=== PATIENT | female | born 1980 | race Caucasian/White ===

== ENCOUNTER 2022-06-27 21:42 | Emergency (ER) | payer BC, SELFPAY ==
[2022-06-27 21:50] VITALS: BP 134/86; PULSE 77; RESP 18; TEMP 36.3; O2SAT 99; BMI 32.5
--- NOTE | 2022-06-27 21:58 | ED.EAR ---
HPI - Ear Problem General Time Seen by Provider: 21:58 Date Seen: 06/27/22 Chief complaint: Ear/Nose/Throat Problem Stated complaint: EAR INFECTION Time Seen by Provider: 06/27/22 21:43 Source: patient and RN notes reviewed Mode of arrival: ambulatory Limitations: no limitations History of Present Illness HPI Narrative: Patient is coming in with concern of an ear infection. She had a little bit more ear pain, notes bilateral but maybe left is worse right now. She has noticed sensation of having to keep open her mouth like she is going upper down in a plane on the left side. She has had some crackling and popping on the right side. Denies any significant nasal congestion, no fevers or chills that she knows of. Maybe felt a little warm earlier today. Has not had any underlying cough or cold symptoms. Did try a some Sudafed 3 or 4 times today has not really helped. Triad some Afrin today and seemed to clear symptoms up will briefly but then came back. She does have a pool but has not noticed any drainage coming from her ears. Her left ear has felt a little itchy at times. She does have a history of ear infections and is wondering if this could be starting. She has felt a little off balance/dizzy with these symptoms. Related Data Home Medications Medication Instructions Recorded Confirmed omeprazole 20 mg capsule,delayed 20 mg PO DAILY 06/27/22 06/27/22 release Allergies Allergy/AdvReac Type Severity Reaction Status Date / Time No Known Drug Allergies Allergy Verified 06/27/22 21:55 Review of Systems Status of ROS: Reports: 6 or more systems reviewed and unremarkable except as noted in History and below [facility] Medical History (Updated 06/27/22 @ 22:15 by Tara Orr MD) GERD (gastroesophageal reflux disease) Social History Smoking Status: Never smoker How many standard drinks containing alcohol do you have on a typical day: 1 or 2 AUDIT-C Alcohol total score: 0 Non-prescribed substance use: denies use Exam Const: Vital Signs, click to edit/add: Vital Signs - 24 hr 06/27/22 21:50 Temperature 97.4 F L Pulse Rate [Pulse Oximeter] 77 Respiratory Rate 18 Blood Pressure [Ri ght Upper Arm] 134/86 Pulse Oximetry 99 Oxygen Delivery Me thod Room Air Documenting provider has reviewed patient's vital signs: yes Common normals: no apparent distress, oriented x3, no limitations, healthy appearing and alert General appearance: cooperative, comfortable and well kempt HENMT: Common normals: normocephalic, head/scalp atraumatic, hearing grossly normal bilaterally, external ears normal, EAC's normal, external nose normal, nasal mucous membranes and turbinates normal, moist oral mucous membranes and oropharynx normal Head and scalp: normocephalic and atraumatic Nose: external nose normal and nasal mucous membranes and turbinates normal External ear: external ears normal External auditory canal: EAC's normal Other: Left TM and canal without any visible abnormality. This tympanic membrane is translucent without any changes. Right tympanic membrane is dull, loss of translucency but no color change. Eye: Common normals: PERRL, EOMs intact bilaterally, conjunctivae normal and no scleral icterus Conjunctiva: conjunctiva(e) normal Pupil: PERRL Neck & C-Spine: Common normals: full ROM, no lymphadenopathy, supple, no meningeal signs, no JVD and thyroid normal Thyroid: thyroid normal Cardio: Common normals: no JVD Neuro: Common normals: oriented x3 Sensorium/orientation: alert Meningeal signs: no meningeal signs Psych: Appearance: well kempt Course Course Hospital Course: Reviewed with patient that this sounds like eustachian tube dysfunction. She does have some evidence of some fluid on her right side. Reviewed with her that there is no evidence of infection. I did agree to send a prescription for an antibiotic to start should her ear pain worsens or she gets fevers with this ear pain. She states she tends to transform quickly in the ear infections. I have written for amoxicillin international broadcast music librarian 75 mg twice a day for 7 days. I have also sent a prescription to see if her insurance will cover for Misa-D 12 hour b.i.d. and Flonase 2 sprays each nostril daily. Vital Signs Vital signs: Initial Vital Signs Temperature 97.4 F L 06/27/22 21:50 Temperature Source Temporal Artery Scan 06/27/22 21:50 Pulse Rate 77 06/27/22 21:50 Respiratory Rate 18 06/27/22 21:50 Blood Pressure 134/86 06/27/22 21:50 Blood Pressure Mean 102 06/27/22 21:50 Blood Pressure Position Sitting 06/27/22 21:50 Pulse Oximetry 99 06/27/22 21:50 Oxygen Delivery Method 06/27/22 21:50 Vital Signs Temperature 97.4 F L 06/27/22 21:50 Pulse Rate 77 06/27/22 21:50 Respiratory Rate 18 06/27/22 21:50 Blood Pressure 134/86 06/27/22 21:50 Pulse Oximetry 99 06/27/22 21:50 Oxygen Delivery Method 06/27/22 21:50 Temperature 97.4 F L 06/27/22 21:50 Pulse Rate 77 06/27/22 21:50 Respiratory Rate 18 06/27/22 21:50 Blood Pressure 134/86 06/27/22 21:50 Pulse Oximetry 99 06/27/22 21:50 Oxygen Delivery Method 06/27/22 21:50 Critical Care Time Critical Care Time Critical Care Time: No Discharge Plan Discharge Clinical Impression: Acute dysfunction of both eustachian tubes, Acute serous otitis media of right ear Condition: Stable Instructions: Serous Otitis Media (ED) Additional Instructions: Start Misa D 12 hour 1 pill twice a day and Flonase 2 sprays each nostril daily. You may need to take these medicines for days up to a couple weeks for symptoms really to improve. Should you start to notice increasing ear pain or develop fever with ear pain, can start the prescription for the amoxicillin I sent with. If there is any concern at any point about each ear symptoms changing, not improving, please seek re-evaluation. Activity Level: Activity as Tolerated Prescriptions: No Action omeprazole 20 mg capsule,delayed release(DR/EC) 20 mg PO DAILY Stand Alone Forms: [email or web address] Info Instructions
--- OUTSIDE RECORDS SUMMARY | 2022-07-05 21:34 | XMS_ITS | Clinical Summary ---
:1980 Author Organization [facility] Address [address] [place] [id number] Care Team Providers Name Role Phone Unavailable Primary Care Provider Unavailable Source Comments Patient records contain information from all sites at [facility]. For routine questions regarding patient records, call [phone] during business hours, M-F 8:00 AM - 5:00 PM Central Time. Record requests for emergency care only can be directed to [phone] at any time.[facility] Allergies Active Allergy Reactions Severity Noted Date Comments Sulfa (Sulfonamide Antibiotics) GI intolerance 022 Medications Medication Sig Dispensed Refills Start Date End Date Status brimonidine Apply 1 application 0 11/21/2020 Active (Mirvaso) 0.33 % gel topically every morning. omeprazole Take 20 mg by mouth 0 Active (PriLOSEC) [address] every morning capsule before breakfast. omeprazole Take 1 capsule (20 90 capsule 3 11/15/2021 Active (PriLOSEC) [address] mg total) by mouth capsule every morning before breakfast. Active Problems No known active problems Family History Medical History Relation Name Comments Alcohol abuse Brother 1 Guevara Fuentes Age 18-37 Drug abuse Brother 1 Guevara Fuentes Age 24-37 Alcohol abuse Brother 2 Gene Fuentes Age 18-28 Drug abuse Brother 2 Gene Fuentes Age 18-28 Coronary artery disease Father Deshaun Fuentes PCI with stent Diabetes Father Deshaun Fuentes Type 2 Skin cancer Father Deshaun Fuentes Age 65 Coronary artery disease Mother Tracy Fuentes Age 49 ( from it) Drug abuse Mother Tracy Fuentes Fentanyl, Age 40 + Yudelka thyroiditis Mother Tracy Fuentes Lupus Mother Tracy Fuentes Obesity Mother Tracy Fuentes Age 30+ Psychiatric Mother Tracy Fuentes Lifelong Coronary artery disease Paternal Grandfather Yousif Fuentes Skin cancer Paternal Grandfather Yousif Fuentes Relation Name Status Comments Brother 1 Guevara Fuentes Brother 2 Gene Fuentes Father Deshaun Fuentes Mother Trcay Fuentes Paternal Grandfather Yousif Fuentes Social History Tobacco Use Types Packs/Day Years Used Date Smoking Tobacco: Never Smokeless Tobacco: Never Alcohol Use Standard Drinks/Week Comments Yes 10 (1 standard drink = 0.6 oz pure 1-2 g lasses of wine most nights alcohol) Alcohol Habits Answer Date Recorded How often do you have a drink 4 or more times a week 022 containing alcohol? How many drinks containing alcohol do 1 or 2 you have on a typical day when you are drinking? How often do you have six or more Less than monthly 2021 drinks on one occasion? Comment: 1-2 glasses of wine most nights 11/13/19 22 Social Isolation Answer Date Recorded In a typical week, how many times do you Once a week 11/09/2021 talk on the phone with family, friends, or neighbors? How often do you get together with friends Twice a week 11/09/2021 or relatives? How often do you attend moravian or mandaeism 1 to 4 times per year 11/09/2021 services? Do you belong to any clubs or organizations Yes 11/09/2021 such as moravian groups, unions, fraternal or athletic groups, or school groups? How often do you attend meetings of the More than 4 times pe r year 11/09/2021 clubs or organizations you belong to? Are you now , , , 11/09/2021 , never or living with a partner? Physical Activity Answer Date Recorded On average, how many days per week do you engage in moderate to 2 days 11/09/2021 strenuous exercise (like walking fast, running, jogging, dancing, swimming, biking, or other activities that cause a light or heavy sweat)? On average, how many minutes do you engage in exercise at th is 30 min 11/09/2021 level? Stress Answer Date Recorded Do you feel stress - tense, restless, nervous, or Only a lit tle 11/09/2021 anxious, or unable to sleep at night because your mind is troubled all the time - these days? Financial Resource Strain Answer Date Recorded How hard is it for you to pay for the very basics like Not h marilee at all 11/09/2021 food, housing, medical care, and heating? Intimate Partner Violence Answer Date Recorded Within the last year, have you been afraid of your partner o r No 11/09/2021 ex-partner? Within the last year, have you been humiliated or emotionall y No 11/09/2021 abused in other ways by your partner or ex-partner? Within the last year, have you been kicked, hit, slapped, or No 11/09/2021 otherwise physically hurt by your partner or ex-partner? Within the last year, have you been raped or forced to have any No 11/09/2021 kind of sexual activity by your partner or ex-partner? Food Insecurity Answer Date Recorded Within the past 12 months, you worried that your food would Never true 11/09/2021 run out before you got money to buy more. Within the past 12 months, the food you bought just didn't N ever true 11/09/2021 last and you didn't have money to get more. Transportation Needs Answer Date Recorded In the past 12 months, has lack of transportation kept you f rom No 11/09/2021 medical appointments or from getting medications? In the past 12 months, has lack of transportation kept you f rom No 11/09/2021 meetings, work, or getting things needed for daily living? Housing Stability Answer Date Recorded In the last 12 months, was there a time when you were not ab le No 11/09/2021 to pay the mortgage or rent on time? In the last 12 months, how many places have you lived? 1 11/09/2021 In the last 12 months, was there a time when you did not hav e a No 11/09/[address] or slept in a group home (including now)? Education Answer Date Recorded What is the highest level of school Bachelor's degree (e.g., BA, AB, 11/09/2021 you have completed or the highest BS) degree you have received? 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 Last Filed Vital Signs Vital Sign Reading Time Taken Comments Blood Pressure 115/76 11/13/2021 1:53 PM COMPOUNDING PHARMACY TECHNICIAN Pulse 83 11/13/2021 1:53 PM COMPOUNDING PHARMACY TECHNICIAN Temperature 36.6 ??C (97.9 ??F) 11/13/2021 1:53 PM COMPOUNDING PHARMACY TECHNICIAN Respiratory Rate - - Oxygen Saturation - - Inhaled Oxygen Concentration - - Weight 107 kg (236 lb 14.2 oz) 11/13/2021 1:53 PM COMPOUNDING PHARMACY TECHNICIAN Height 171 cm (5' 7.32) 11/13/2021 1:53 PM COMPOUNDING PHARMACY TECHNICIAN Body Mass Index 36.75 11/13/2021 1:53 PM COMPOUNDING PHARMACY TECHNICIAN Plan of Treatment Health Maintenance Due Date Last Done Comments HIV Screening 1980 Hepatitis B Vaccines (1 of 3 1980 - 3-dose series) Hepatitis C Screening 1980 COVID-19 Vaccine (4 - Booster 10/11/2021 08/16/2021, for Moderna series) 01/03/2021, 12/06/2020 Influenza Vaccine (#1) 2022 Mammogram 11/14/2022 11/14/2021 DTaP,Tdap,and Td Vaccines (2 09/28/2025 09/28/2015 - Td or Tdap) Lipid (Cholesterol) Screening 11/13/2026 11/13/2021 Cervical Cancer Screening 11/14/2026 11/14/2021, 11/14/2021 Depression Screening (Annual Completed 11/09/2021 PHQ-2) Pneumococcal vaccine (0-64 Aged Out No lo nger eligible based years) on patient's age to complete this to [facility] Insurance Payer Benefit Plan / Subscriber ID Effective Dates Phone Addre ss Type Group BLUE CROSS ANTHEM BLUE [id number] 2020-Presen [phone] [address] X [id number] POS BLUE SHIELD PREFERRED POS t [address] [place] [address]
--- OUTSIDE RECORDS SUMMARY | 2022-07-05 21:35 | XMS_ITS | Encounter Summary ---
:1980 Author Organization [facility] Address [address] [place] [address] Care Team Providers Name Role Phone Unavailable Primary Care Provider Unavailable Reason for Referral Outpatient (Routine) - Closed Specialty Diagnoses / Procedures Referred By Contact Refer red To Contact Diagnoses Cardiac Vascular Disease Screening Leonora Lucero M.D. [facility] Procedures Exercise Treadmill - Order for 40 years and greater [address] [place] [address] Referral ID Status Reason Start Date Expiration Date Visits Requ ested Visits Authorized [id number] Closed 09/10/2021 09/10/2022 1 1 INSPECTOR Reason for Visit Outpatient (Routine) - Closed Specialty Diagnoses / Procedures Referred By Contact Refer red To Contact Diagnoses Cardiac Vascular Disease Screening Leonora Lucero M.D. [facility] Procedures Exercise Treadmill - Order for 40 years and greater [address] [place] [phone] Referral ID Status Reason Start Date Expiration Date Visits Requ ested Visits Authorized [id number] Closed 09/10/2021 09/10/2022 1 1 Encounter Details Date Type Department Care Team Description 11/14/2021 Hospital Encounter Department of Leonora Lucero Cardiac Vascular Cardiovascular Diseases [facility] Screening in [facility] [address] [facility] [address] [place] [id number] [phone] Social History Tobacco Use Types Packs/Day Years [...] or relatives? How often do you attend uatsdin or scientology 1 to 4 times per year 11/09/2021 services? Do you belong to any clubs or organizations Yes 11/09/2021 such as uatsdin groups, unions, fraternal or athletic groups, or [...] place to sleep or slept in a usp (including now)? Education Answer Date Recorded What is the highest level of school Bachelor's degree (e.g., BA, AB, 11/09/2021 you have completed or the highest BS) degree you have received? 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 omeprazole (PriLOSEC) 20 Take 20 mg by mouth [address] capsule every morning before breakfast. documented as of this encounter Plan of Treatment Not on filedocumented as of this encounter Procedures Procedure Name Priority Date/Time Associated Diagnosis Comme nts EXERCISE ECG Routine 11/14/2021 2:03 PM Cardiac Vascular Resul ts for this TUBE INSPECTOR Disease Screening procedure are in the results section . documented in this encounter Results EXERCISE ECG (11/14/2021 2:03 PM TUBE INSPECTOR) Specimen (Source) Anatomical Collection Method Collection Time Re ceived Time Location / / Volume Laterality 11/14/2021 1:17 PM TUBE INSPECTOR Narrative [facility] MERGE - 11/14/2021 3:10 PM TUBE INSPECTOR This result has an attachment that is no t available. See PDF For Result Procedure Note Carlos Swenson M.D. - 11/14/2021Forma tting of this note might be different from the original. See PDF For Result Leonora Lucero M.D. CV STRESS PROCEDURES Performing Organization Address City/State/ZIP Code Phon e Number [facility] MERGE [facility] NA documented in this encounter Visit Diagnoses Diagnosis Cardiac Vascular Disease Screening documented in this encounter
--- OUTSIDE RECORDS SUMMARY | 2022-07-05 21:35 | XMS_ITS | Encounter Summary ---
:[address] [facility] Address [address] [place] [address] Care Team Providers Name Role Phone Unavailable Primary Care Provider Unavailable Reason for Referral Outpatient (Routine) - Closed Specialty Diagnoses / Procedures Referred By Contact Refer red To Contact Diagnoses Screening Mammogram Breast Cancer Leonora Lucero M.D. [facility] Procedures BI Breast Screening Bilateral with Tomosynthesis [address] [place] [address] Referral ID Status Reason Start Date Expiration Date Visits Requ ested Visits Authorized [id number] Closed 11/13/2021 11/13/2022 1 1 SITE SPECIALIST Reason for Visit Outpatient (Routine) - Closed Specialty Diagnoses / Procedures Referred By Contact Refer red To Contact Diagnoses Screening Mammogram Breast Cancer Leonora Lucero M.D. [facility] Procedures BI Breast Screening Bilateral with Tomosynthesis [address] [place] [address] Referral ID Status Reason Start Date Expiration Date Visits Requ ested Visits Authorized [id number] Closed 11/13/2021 11/13/2022 1 1 Encounter Details Date Type Department Care Team Description 11/14/2021 Hospital Encounter Department of Leonora Lucero Scree ning Mammogram Radiology in [facility] [place], [place] [address] [facility] [address] [place] [phone] Social History Tobacco Use Types Packs/Day Years [...] or relatives? How often do you attend sabianism or jewish 1 to 4 times per year 11/09/2021 services? Do you belong to any clubs or organizations Yes 11/09/2021 such as sabianism groups, unions, fraternal or athletic groups, or [...] place to sleep or slept in a skilled nursing (including now)? Education Answer Date Recorded What is the highest level of school Bachelor's degree (e.g., BA, AB, 11/09/2021 you have completed or the highest BS) degree you have received? 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 documented in this encounter Results BI Breast Screening Bilateral with Tomosynthesis (11/14/2021 2:35 PM WEB SITE SPECIALIST) Anatomical Region Laterality Modality Breast, Breast Imaging RST LOS, Breast Imaging ARZ LOS, [place] [address] Bilateral Mammography Imaging FLA LOS Specimen (Source) Anatomical Collection Method Collection Time Re ceived Time Location / / Volume Laterality 11/15/2021 7:57 AM WEB SITE SPECIALIST Impressions 11/15/2021 9:22 AM WEB SITE SPECIALIST Negative. RECOMMENDATION: ??Annual Screening Mammo gram ASSESSMENT: ??BI-RADS: 1: Negative. Narrative 11/15/2021 9:22 AM WEB SITE SPECIALIST EXAM: ??BI BREAST SCREENING BILATERAL WITH TOMOSYNTHESIS Current study was evaluated with a [employer] Interactive Aided Detection (CAD) system. INDICATION: ??Screening mammogram. COMPARISON: ??None, this is a baseline s creening exam. DENSITY: ??c. The breast(s) are heteroge neously dense, which may obscure small masses. FINDINGS: ??No mammographic findings of malignancy. Procedure Note Melvi Cordova M.D. - 11/15/2021Formatti ng of this note might be different from the original. EXAM: BI BREAST SCREENING BILATERAL WITH TOMOSYNTHESIS Current study was evaluated with a [employer] Interactive Aided Detection (CAD) system. INDICATION: Screening mammogram. COMPARISON: None, this is a baseline scr eening exam. DENSITY: c. The breast(s) are heterogene ously dense, which may obscure small masses. FINDINGS: No mammographic findings of ma lignancy. IMPRESSION: Negative. RECOMMENDATION: Annual Screening Mammogr am ASSESSMENT: BI-RADS: 1: Negative. Leonora BRICENO BI PROCEDURES documented in this encounter Visit Diagnoses Diagnosis Screening Mammogram Breast Cancer documented in this encounter
--- OUTSIDE RECORDS SUMMARY | 2022-07-05 21:35 | XMS_ITS | Encounter Summary ---
:1980 Author Organization [facility] Address [address] [place] [id number] Care Team Providers Name Role Phone Unavailable Primary Care Provider Unavailable Reason for Referral Physical Therapy (Routine) - Authorized Specialty Diagnoses / Procedures Referred By Contact Refer red To Contact Diagnoses Pain Low Back Unspecified Shara Campos M.D. [address] [place] [phone] Referral ID Status Reason Start Date Expiration Date Visits V isits Requested Authorized [id number] Authorized Other 11/15/2021 11/15/2022 1 1 OUR GRINDER Reason for Visit Reason Comments Back Pain Outpatient (Routine) - Closed Specialty Diagnoses / Procedures Referred By Contact Refer red To Contact Physical Medicine and Diagnoses Pain Low Back Un[facility] [address] [place] [phone] Referral ID Status Reason Start Date Expiration Date Visits Requ ested Visits Authorized [id number] Closed 11/13/2021 11/13/2022 1 1 Encounter Details Date Type Department Care Team Description 11/15/2021 Comprehensive Visit Department of Physical Beth, Pain Low Back Medicine and Shara Clemente M.D. Unspecified Rehabilitation in [address] [place] [address] [place] [phone] [place], [place] [phone] (Work) [phone] Social History Tobacco Use Types Packs/Day Years [...] 1-2 glasses of wine most nights 11/13/19 Social Isolation Answer Date Recorded In a typical week, how many times do you Once a week 11/09/2021 talk on the phone with family, friends, or neighbors? How often do you get together with friends Twice a week 11/09/2021 or relatives? How often do you attend restoration or yarsani 1 to 4 times per year 11/09/2021 services? Do you belong to any clubs or organizations Yes 11/09/2021 such as restoration groups, unions, fraternal or athletic groups, or [...] place to sleep or slept in a half-way (including now)? Education Answer Date Recorded What is the highest level of school Bachelor's degree (e.g., BA, AB, 11/09/2021 you have completed or the highest BS) degree you have received? 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 - 11/15/2021 10:00 AM CST SUBJECTIVE REASON FOR CONSULT Low back and hip pain. HISTORY OF PRESENT ILLNESS Mrs. Rojas is a 41-year-old woman who has had back pain for about 5 years. She does state that she did a lot of sitting in her 20s, and perhaps that is what initially started this. She has tried a lotof treatments on her own. She has a TENS unit that she uses occasionally. She goes to a masseuse once a month. This usually helps, although 1 in 5 times it will make the pain worse. She has tried chiropractic treatment, but it only gives her a very short period of relief. She has been to a physical therapist as well as a sports therapist at the chiropractor's office. She does some stretching. She does a few postural exercises. She uses heat which does help. Her pain is mainly located across the lumbosacral region. When she gets the pain, it will also travel into her hips. She describes tightness and stiffness and crunchiness in the lumbosacral region and traveling into the hips. The pain can get up to a 7/10. The 7/10 pain will occur twice a year. Normally, it is more like a 3 to 4 out of 10. The pain is aggravated by prolonged sitting, and particularlywhen she goes from sit to stand. She now has a standing desk which really helps her a lot. She has also gotten a better mattress which she feels helps. The pain is aggravated by extension. Lifting something will bother her when she comes up from lifting. The pain is better with moving around, walking. Standing is better than sitting. She takes an occasional Advil, which will help. Although she is does not do any formal exercise, she is very active. She walks 25 minutes to and from work. She stands about 10 hours a day. The following portions of the patient's history were reviewed and updated as appropriate: allergies,current medication, family history, medical history, surgical history, social history, problem list. She is here for an Executive physical. She is being evaluated for a rheumatologic condition. She does have a BMI of 36, and is working on losing weight. She has lost about 10 pounds, and is following the Mediterranean diet She does have some midback pain as well. This occurs when she is standing, flexed forward with an increased thoracic kyphosis. OBJECTIVE PHYSICAL EXAMINATION General: Well-developed, well-nourished individual in no acute distress. Mental: Oriented to person, place, and time. Appropriate mood and affect. Appears to have normal memory. Gait: Gait reveals normal leela and stride. Toe and heel walking are normal. Musculoskeletal : Inspection and Palpation: She has a mild thoracic scoliosis convex to the right. She has tenderness to palpation in the paraspinal lumbosacral region from about L4-S1. She has mild tenderness over the SI joints. She is tender in the trochanteric bursal region. Range of Motion: Range of motion of the lumbar spine is slightly diminished in all directions. Thereis pain with extension. Hip range of motion is good without any pain. Jossy's goes from 15-21 cm. SI provocative maneuvers demonstrate pain with sacral glide and thigh thrust. Strength and Reflexes: Strength and reflexes in the lower extremities are normal. Balance: She has good balance with single leg stance. With single leg squat she does have some difficulty going into a squat and has decreased activation of her glutes and pelvic and hip abductors. DIAGNOSTICS I have reviewed her x-rays of the lumbar spine and her SI joints. 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 ASSESSMENT / PLAN #1 Low back pain, mechanical and myofascial I do think that the facet joints and the SI joint are contributing, but there is also a significant myofascial component to this. #2 Hip pain, myofascial I have reassured the patient that I find no evidence of degenerative arthritis of her hips. I do think that this is all myofascial and includes the gluteus medius and minimus and the psoas muscle. PLAN: 1. I do think she would benefit from a comprehensive stretching and strengthening program that she does regularly. I will give her an order for physical therapy to do at home with the goal of getting on a home program. She does have exercise equipment at home including a strengthening machine that we c nataliya utilize. 2. Discussed the importance of posture. Her standing desk is excellent. She should make sure she maintains good sitting posture, and we will have the therapist review this. She could try a wedge cushion when she is sitting to see if that helps. 3. She is trying to lose weight and that should help, but I think that the other measures above are also very important. 4. We discussed Voltaren gel as an option to relieve pain temporarily. She could rub it on the painful area up to 2 times per day. 5. Could consider injections in the future if needed, but certainly does not need it right now. Total time is 60 minutes including review of records and coordination of care. Shara Campos M.D. CT CT Job ID: [id number] OUR GRINDER documented in this encounter Plan of Treatment Not on filedocumented as of this encounter Visit Diagnoses Diagnosis Pain Low Back Unspecified documented in this encounter
--- OUTSIDE RECORDS SUMMARY | 2022-07-05 21:35 | XMS_ITS | Encounter Summary ---
:1980 Author Organization [facility] Address [address] [place] [address] Care Team Providers Name Role Phone Unavailable Primary Care Provider Unavailable Reason for Visit Outpatient (Routine) - Closed Specialty Diagnoses / Referred By Contact Referred To Contact Procedures Cardiovascular Diseases / Diagnoses [facility] [address] [place] [phone] Referral ID Status Reason Start Date Expiration Date Visits Requ ested Visits Authorized [id number] Closed 09/10/2021 09/10/2022 1 1 Encounter Details Date Type Department Care Team Description 11/15/2021 Comprehensive Visit Department of Ariadne Jackson Cardiac Vascular Disease Screening (Primary Dx); Cardiovascular E, P.A.-C., Family Histor y Coronary Artery Disease; Medicine in [place]. Hypertriglyceridemia; [place], [place] [address] Deconditioned; [address] [facility] Palpitations; [place], [place] Chu [phone] [place] [phone] Social History Tobacco Use Types Packs/Day Years [...] or relatives? How often do you attend jewish or temple 1 to 4 times per year 11/09/2021 services? Do you belong to any clubs or organizations Yes 11/09/2021 such as jewish groups, unions, fraternal or athletic groups, or [...] place to sleep or slept in a intermediate (including now)? Education Answer Date Recorded What is the highest level of school Bachelor's degree (e.g., BA, AB, 11/09/2021 you have completed or the highest BS) degree you have received? 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 - 11/15/2021 8:30 AM CST SUBJECTIVE CHIEF COMPLAINT/REASON FOR VISIT Cardiovascular Health Assessment HISTORY OF PRESENT ILLNESS Ifeoma Rojas is a very pleasant 41 y.o. female who is being seen today for initial consultation. Personal history of ASCVD: no Current cardiovascular medications: None Denies symptoms of chest pain, tightness, dyspnea. She does experience a racing heartrate after heatexposure; she has heat intolerance, with which she will develops headache, blotchy skin, nausea, increased Heart rate/palpitations. She notes that this is helped by placing her hands in cold water/ice.She also becomes lightheaded with prolonged standing and with heat exposure, she occasionally will experience presyncope, once again alleviated by cold water/ice. 8-10 years ago, she did experience syncope in the setting, however since she has implemented lifestyle approaches, has avoided syncope since that time. She does endorse mild peripheral edema, this has been present for quite some time, it is never more than just a slight indentation from her socks. She does stand all day at a standing desk. She notes that compression stockings help. Family history is pertinent for mother had a fatal IL at age 49, father had an IL with stent placed at age 47. Paternal grandfather had an IL at age 39. His father paternal grandfather were both tobacco users, her mother did not use tobacco, did not have diagnosed diabetes, although she was morbidly obese, greater than 400 lb. We discussed lifestyle habits, specifically diet and exercise. She notes her diet to be overall relatively healthy, although room for improvement. She has 3-4 servings of fruits and vegetables per day, her carbohydrate intake is usually white varieties, she does not have any sodas or sweetened beverages, she does not eat very many sweets/treats. Fried food is perhaps once per week, using at prior. She has red meat 4 times per week, 3-4 oz serving sizes. Cooking oils are either olive oil or butter, new coconut oil. Alcohol intake is 1-2 beverages, most days of the week, average 10 per week. Her exercise habits include walking to in from work, [address] She has previously worked with a process trainer for resistance exercise, although notes that she does not enjoy resistance exercise. Risk Factors for CAD: Tobacco Use: reports that she has never smoked. She has never used smokeless tobacco. High Blood Pressure: no Diabetes: No FH of early onset CAD in immediate family members (male <55, female <65): yes Hyperlipidemia: yes Inactivity: yes Obesity: yes Patient responses from the Cardiology Preventive Questionnaire: -Typical level of stress during the past month: 8 -Daily servings of fruit: 1 serving per day -Daily servings of vegetables: 3 servings per day -Daily servings of saturated fats: 1 serving per day -Light Exercise (min/wk): 280 min/wk -Moderate exercise (min/wk): 60 -Intense Exercise (min/wk): -Days doing vigorous physical activities: No days per week -Total time spent doing vigorous physical activities: -Total minutes doing strength/weight training exercises: I do not strength train -Days doing stretching/flexibility exercise: No days per week REVIEW OF SYSTEMS Constitutional: Positive for fatigue. Gastrointestinal: Positive for heartburn. Musculoskeletal: Positive for back pain. The following systems were negative: Skin, Eyes, ENT, CV, Respiratory, , Hematologic, Neuro, Psych OBJECTIVE BMI 36.75 BP 115/76 at initial office visit BP 126/74 at beginning of exercise stress test PHYSICAL EXAMINATION Constitutional Appearance: Normal appearance. HENT Head: Normocephalic and atraumatic. Neck Vascular: No carotid bruit. Cardiovascular Rate and Rhythm: Normal rate and regular rhythm. Pulses: Normal pulses. Heart sounds: Normal heart sounds. No murmur. No friction rub. No gallop. Pulmonary Effort: Pulmonary effort is normal. Breath sounds: Normal breath sounds. Musculoskeletal Right lower leg: Right lower leg edema: mild. Left lower leg: Left lower leg edema: mild. Neurological Mental Status: She is alert and oriented to person, place, and time. Skin General: Skin is warm and dry. Psychiatric Mood and Affect: Mood normal. Behavior: Behavior normal. Thought Content: Thought content normal. DIAGNOSTICS Chemistry: Lab Results Component Value Date/Time NA 138 11/13/2021 09:38 AM KSERUM 4.4 11/13/2021 09:38 AM CREATININE 0.92 11/13/2021 09:38 AM EGFRNONBLKAA 78 11/13/2021 09:38 AM GLUCOSE 94 11/13/2021 09:39 AM ALKPHOS 70 11/13/2021 09:38 AM ALT 20 11/13/2021 09:38 AM CALCIUM 9.2 11/13/2021 09:38 AM Lipids: Lab Results Component Value Date/Time CHOL 191 11/13/2021 09:38 AM TRIG 165 (H) 11/13/2021 09:38 AM HDL 56 11/13/2021 09:38 AM LDLCALC 102 11/13/2021 09:38 AM ECG 12 Lead Result Date: 11/13/2021 Normal sinus rhythm Normal ECG No previous ECGs available Reviewed by AAKASH Betts Chest Xray: Normal cardiac silhouette Exercise Stress test: Negative for ischemia however limited exercise capacity, 67.4% functional aerobic capacity, normal heart rate and blood pressure response with exercise and recovery, PVCs >5/min ASSESSMENT / PLAN #1 Cardiac Vascular Disease Screening #2 Family History Coronary Artery Disease #3 Hypertriglyceridemia #4 Deconditioned #5 Palpitations #6 Lightheadedness She has a 10 year ASCVD risk of 0.4 % with an optimal risk of 0.4 %; low risk. According to AHA/ACC guidelines with an LDL less than 190 mg/dL and a 10 year risk less than 20%, statin therapy is not indicated. Regarding risk factor specific to women, she did not have premature menopause, did not have conditions of including preeclampsia, eclampsia, gestational diabetes. However, she does have history of PCOS, which approximately doubles baseline ASCVD risk. Her triglycerides are mildly elevated, recommend optimization of lifestyle, including reduction of simple carbohydrates, sugars, alcohol. She should also focus on trying to increase her aerobic exercise. Due to strong family history of early-onset ASCVD, and have added a lipoprotein(a) to her previouslydrawn blood work. We discussed that there are not clear guidelines regarding management of individuals at overall low risk with elevated lipoprotein(a), however this will give us more information regard ing her overall risk profile. If it is significantly elevated, with the significantly early-onset offor family history of ASCVD, I do feel it would be reasonable to initiate a moderate intensity statin. If it is within normal limits, this provide some reassurance that she does not have this particular risk factor, although we discussed that there are still other genetic propensities for ASCVD that we have not yet elucidated. Therefore, even if it is within normal limits, she should remain diligent about her risk factor management. Regarding her lightheadedness, and palpitations, this sounds mostly aligned with her heat intolerance, and potential autonomic dysfunction. She will be undergoing autonomic screening later today. Her exercise stress test was negative for ischemia, it did show limited exercise capacity, although she notes that she is mainly afraid to continue on the treadmill, due to fear of falling off a treadmill. She usually utilizes an elliptical. She had normal heart rate and blood pressure response with exercise, she did have frequent PVCs, however was asymptomatic, therefore no further investigation is warranted at this time. Ifeoma Rojas was advised to follow a healthy Mediterranean style diet, she has already received education regarding the specifics of the Mediterranean style diet during her visit with Dr. Lucero. She was encouraged to exercise with a weekly goal of 150 minutes of moderate to intense exercise. I also recommend incorporating interval training. Pamphlets were provided. It was my pleasure to participate in the care of Ifeoma Rojas. She verbalized understanding of recommendations and had no further questions. Ariadne Lorenz P.A.-C., MShahramS. L STRUCTURAL ENGINEER documented in this encounter Plan of Treatment Not on filedocumented as of this encounter Procedures Procedure Name Priority Date/Time Associated Comments Diagnosis LIPOPROTEIN (A), S/P Routine 11/13/2021 9:33 AM Family History Results for this CIVIL STRUCTURAL ENGINEER Coronary Artery procedure ar e in Disease the results section. documented in this encounter Results Lipoprotein (a) (11/13/2021 9:33 AM CIVIL STRUCTURAL ENGINEER) P athologist Signature Lipoprotein (a) <7 <75 nmol/L 11/15/2021 DTL 1:46 PM CIVIL STRUCTURAL ENGINEER Comment: ----ADDITIONAL INFORMATION---- Please notice that Lp(a) values are repo rted in molar units (nmol/L). ??These units are recommended by professional society guidelines and e xpert opinion statements. ??Measured results a nd risk thresholds are higher than those generat ed using mass units (mg/dL). Cardiovascular risk increases starting at 75 nmol/L. Lp(a) >=125 nmol/ L is considered a risk enhancing factor by th e [place] [employer]. This test has been modified from the man ufactvíctorr's instructions. Its performance characteri stics were determined by [facility] in a manner co nsistent with CLIA requirements. This test has not bee n cleared or approved by the U.S. Food and Drug Admin istration. Specimen Anatomical Collection Method Collection Time Receive d Time (Source) Location / / Volume Laterality Blood (Blood, 11/13/2021 9:33 AM 11/15/19 22 Venous) CIVIL STRUCTURAL ENGINEER 12:48 PM CIVIL STRUCTURAL ENGINEER Ariadne Jackson P.A.-C., M.S. LAB BLOOD ADD-ON Performing Organization Address City/State/ZIP Code Phon e Number [facility] - [address] [place], [place] [address] [facility] [place] [address] Laboratories-[facility] [address] documented in this encounter Visit Diagnoses Diagnosis Cardiac Vascular Disease Screening - Kelly ifeoma Family History Coronary Artery Disease Hypertriglyceridemia Deconditioned Palpitations Lightheadedness documented in this encounter
--- OUTSIDE RECORDS SUMMARY | 2022-07-05 21:35 | XMS_ITS | Encounter Summary ---
:[address] [facility] Address [address] [place] [address] Care Team Providers Name Role Phone Unavailable Primary Care Provider Unavailable Encounter Details Date Type Department Care Team Description 11/13/2021 Admin Visit Section of Executive and International Medicine in [place], [place] [address] [place] [phone] Social History Tobacco Use Types Packs/Day Years [...] or relatives? How often do you attend episcopalian or episcopal 1 to 4 times per year 11/09/2021 services? Do you belong to any clubs or organizations Yes 11/09/2021 such as episcopalian groups, unions, fraternal or athletic groups, or [...] place to sleep or slept in a long term (including now)? Education Answer Date Recorded What is the highest level of school Bachelor's degree (e.g., BA, AB, 11/09/2021 you have completed or the highest BS) degree you have received? Sex Assigned at Date Recorded Female 11/09/2021 9:31 AM IP COUNSEL documented as of this encounter Plan of Treatment Not on filedocumented as of this encounter Visit Diagnoses Not on filedocumented in this encounter
--- OUTSIDE RECORDS SUMMARY | 2022-07-05 21:35 | XMS_ITS | Encounter Summary ---
:1980 Author Organization [facility] Address [address] [place] [id number] Care Team Providers Name Role Phone Unavailable Primary Care Provider Unavailable Reason for Visit Outpatient (Routine) - Closed Specialty Diagnoses / Referred By Referred To Cont act Procedures Contact Gastroenterology and Diagnoses Gastroesophageal Reflux Disease Leonora Luceor, [facility] Hepatology [address] [place] [address] Referral ID Status Reason Start Date Expiration Date Visits Requ ested Visits Authorized [id number] Closed 10/17/2021 10/17/2022 1 1 Encounter Details Date Type Department Care Team Description 11/15/2021 Comprehensive Visit Division of Leonora Lucero M.D. [address] [place] [phone] [facility] [address] [place] [phone] Reflux Disease [place], [place] [address] [place] [phone] Social History Tobacco Use Types Packs/Day Years [...] or relatives? How often do you attend judaism or shinto 1 to 4 times per year 11/09/2021 services? Do you belong to any clubs or organizations Yes 11/09/2021 such as judaism groups, unions, fraternal or athletic groups, or [...] place to sleep or slept in a senior living (including now)? Education Answer Date Recorded What is the highest level of school Bachelor's degree (e.g., BA, AB, 11/09/2021 you have completed or the highest BS) degree you have received? 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 - 11/15/2021 2:30 PM CST REFERRAL SOURCE Leonora Lucero M.D. CHIEF COMPLAINT/REASON FOR VISIT Reflux SUBJECTIVE HISTORY OF PRESENT ILLNESS The patient is a 41 y.o. woman from [place] who is here for her 1st executive health visit. In thecourse of her history, she reported reflux that has been worsening recently. She states that she hashad reflux for 2-3 years, and over time, she was taking an increasing number of Tums, upwards of 10 per day. Her reflux related symptoms were a bit unusual, in that they may occur daily for a week or so, then be absent for anywhere from a week to a month before they would recur. They have now become more regular in occurrence. Symptoms definitely worsen when she lays down, and she has had regurgitation episodes in the middle of the night with gastric contents in the back of her throat. She also has noted regurgitation if she bends over if there is food in her stomach. Interestingly, she will have burning at the back of her throat which may be more so when she has not eaten. She has not noticed anyspecific food that is provoking, and has tried variations of tomato based foods, changes to wine consumption or coffee consumption which has not seemed to make a difference. She has had fluctuation of her weight during COV, and did have weight gain during this time, and although she did have some subsequent weight loss, she still over which she would consider her comfortable weight. She did get a 14 day course of omeprazole 20 mg by mouth once a day, which she took before breakfast, and had very good relief of symptoms with that. She then obtained another 14 day course. She states that when she has missed a day of the omeprazole, symptoms will recur, so she was interested in discussing the safety and efficacy of continuing this long-term. No nausea or vomiting. No dysphagia or odynophagia. No family history of upper GI malignancy. MEDICAL HISTORY No abdominal surgeries CURRENT MEDICATIONS Current Outpatient Medications: ??? brimonidine (Mirvaso) 0.33 % gel, Apply 1 application topically every morning., Disp: , Rfl: ??? omeprazole (PriLOSEC) [address] capsule, Take 20 mg by mouth every morning before breakfast., Disp: , Rfl: ??? omeprazole (PriLOSEC) [address] capsule, Take 1 capsule (20 mg total) by mouth every morning before breakfast., Disp: 90 capsule, Rfl: 3 SOCIAL HISTORY Drinks 1-2 glasses of wine per day. No tobacco history. Walk for exercise. FAMILY HISTORY Negative for GI malignancies REVIEW OF SYSTEMS I have personally reviewed the multi-organ review of systems, and have documented those pertinent tothe current issue in the HPI. All others are non-contributory. OBJECTIVE PHYSICAL EXAMINATION General: Appears comfortable, healthy Eyes: No icterus or inflammation Mouth: Normal oropharynx without aphthous ulcers Neck: No cervical or supraclavicular lymphadenopathy. Normal thyroid. Abdomen: Soft, nontender, nondistended without masses or hepatosplenomegaly ASSESSMENT / PLAN ASSESSMENT #1 Symptomatic gastroesophageal reflux disease #2 Increased BMI PLAN 1. We talked about the safety and efficacy of PPI therapy taken tank terminal gauger, as long as patient is find the lowest effective dose for symptom control. I think it is very reasonable for her to stay on omeprazole 20 mg a day taken 30-60 minutes before her 1st oral intake of the day. If in the future she would ever like to have an attempt at coming off omeprazole, I would recommend tapering every other day for several weeks, then every 3rd day for several weeks before stopping, to avoid symptomatic acid rebound that can be seen with acute discontinuation. If she ever has breakthrough symptoms despite PPI therapy, she certainly could take a Pepcid or Tums on demand, but if she is having to do this more than 2-3 times per week, increased dosing of PPI therapy may need to be considered. 2. At this time, I do not think there is any indication for an EGD. I told her if symptoms were to progress despite acid lowering therapy, or if she were to develop symptoms such as dysphagia or other such things, then that would need to be revisited in the future. 3. While we talked about some foods that can lower the lower esophageal sphincter pressure, which may predispose to reflux events, such as chocolate, red wine, peppermint, coffee, these things do not need to be strictly avoided, but should be taken in moderation so that they do not drive increasing med ication requirements. I mentioned how small amounts of weight loss, anywhere from 5-15 lb, can significantly help with reflux related symptoms given increased pressure on the abdomen from tight-fittingclothes can worsen reflux events. 4. I did advise to avoid laying supine after eating or drinking for approximately 3 hours, and if she were to continue to have nocturnal episodes of regurgitation despite avoiding eating before bedtime, then she should raise the head of her bed ever so slightly to have her esophagus be at an angle above the level of her stomach. All questions answered. NG TESTER documented in this encounter Plan of Treatment Not on filedocumented as of this encounter Visit Diagnoses Diagnosis Gastroesophageal Reflux Disease documented in this encounter
--- OUTSIDE RECORDS SUMMARY | 2022-07-05 21:35 | XMS_ITS | Encounter Summary ---
:1980 Author Organization [facility] Address [address] [place] [address] Care Team Providers Name Role Phone Unavailable Primary Care Provider Unavailable Reason for Visit Outpatient (Routine) - Closed Specialty Diagnoses / Procedures Referred By Contact Refer red To Contact Integrative Medicine Diagnoses Stress Leonora Lucero M.D. [facility] [address] [place] [address] Referral ID Status Reason Start Date Expiration Date Visits Requ ested Visits Authorized [id number] Closed 11/13/2021 11/13/2022 1 1 Encounter Details Date Type Department Care Team Description 11/14/2021 Comprehensive Visit Integrative Medicine and Stephanie Browning, Stress Health in [facility] [address] [facility] [address] [place] [phone] Social History Tobacco Use Types Packs/Day Years [...] or relatives? How often do you attend restorationism or pentecostal 1 to 4 times per year 11/09/2021 services? Do you belong to any clubs or organizations Yes 11/09/2021 such as restorationism groups, unions, fraternal or athletic groups, or [...] place to sleep or slept in a correction (including now)? Education Answer Date Recorded What is the highest level of school Bachelor's degree (e.g., BA, AB, 11/09/2021 you have completed or the highest BS) degree you have received? 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 - 11/14/2021 10:15 AM CST Referral Source: Leonora Lucero M.D. [address] [place] [phone] SUBJECTIVE Chief Complaint: Ms. Rojas is being seen in the Integrative Medicine and Health, Section of General Internal Medicine. History of Presenting Illness: Ms. Rojas is a delightful, engaging 41 y.o. female presenting for an individual Stress Management and Resiliency Training (SMART) consultation. Ms. Rojas's current stressors involve psychosocial factors: their 15-year-old son Mark has mental health concerns and is undergoing psychotherapy including partial hospitalization. She said he has aggressive panic attacks, self- injurious behavior, suicidality and cannot be left alone for more than5 minutes at a time. Additionally she has medical issues, including weight gain, fatigue, hypertriglyceridemia, and other concerns. Ms. Rojas and her Jeremy have been 5 years and also have another son: 18-year-old Rigo. 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 Ms. Rojas had a traumatizing childhood, scoring 8 out of 10 on the HOA quiz. However, she has used these experiences to develop her resilience. She appears to have keen insight into her situation and to be aware of her exceptional resiliency skills. Review of Systems Brief Resiliency Score: 2.83 Perceived Stress Scale: 2.25 Global Health: Good to very good Average pain rating in the past 7 days (0 = No pain, 10 = Worst pain imaginable): 3 Average sleep quality in the past 7 days: Good Patient describes diet as: Good Patient describes spiritual well-being as: Very good Current relaxation programs practiced regularly: Meditation, Deep breathing, music, reading ASSESSMENT / PLAN Stress Management and Resiliency Training (SMART) Ms. Rojas is experiencing a high level of stress at the current time. We discussed a structured plan based on an understanding of neuroscience, including emerging literature on the brain???s default and focused modes. Ms. Rojas???s stress is being triggered by (1) demand/resource imbalance, (where far more is expected of a person than they can handle); (2) lack of control, and (3) lack of meaning. The best way to manage stress is to identify stressors, eliminate them (if possible), focus on what can be controlled,and/or reframe the stressors. We discussed activities that engage our brain???s higher cortical centers, also known as the focused mode, by engaging higher order principles of gratitude, compassion, acceptance, higher meaning, and forgiveness. The goal of this program is that with adherence over time, a person's default network (with its irrational fears, prejudices, and bias) will be replaced by these higher principles, so that even when on autopilot or engaging the default network, a person will effortlessly live from their higher principles. With consistent practice of SMART over time, life can become an expression of a person???s ???highest self???. I provided her with the Stress Management and Resiliency Training (SMART) Program handout [id number] byDr. Jim Plata and [place] Resilience Handout [id number]. I also recommended Calm and ZIZO apps for hisThe Wedding Favor and computer, as well as the book No More Sleepless Nights by Yannick Chamberlain, Ph.D and Leni Choudhary, Ph.D. Some Suggested Daily Recommendations: a. Morning Gratitude: Ms. Rojas is recommended to wake up every morning and begin each day practicing a gratitude exercise. This exercise was practiced together in clinic today. This involves deep abdominal breathing, visualizing the faces of the people you deeply care for and appreciate in your mind's eye (one of the people should include yourself). Inhale gratitude for them and exhale and send them your well wishes, a prayer, or your protection. b. Two Minute Rule or Radical Acceptance: We discussed building a habit of meeting family, friends, colleagues, or in-laws by first practicing the two minute rule. This involves delaying judgment by externalizing your attention and viewing the person in front of you with kind eyes. As you interactwith them, send them your complete acceptance. Making eye contact helps. c. Silent Well-Wishes & Reclaiming Empty Moments: We discussed the third practice, which can be blended with routine practices or empty moments throughout the day, such as walking between medicalappointments, waiting at the airport, driving in the car, or at a grocery check-out line. These moments can be reclaimed by silently sending well wishes to the people around you. This is a silent practice. You can look people in the eye but it is not a requirement. d. Higher Values: Resiliency (the ability to thrive when you wouldn???t be expected to thrive) involves grounding oneself in higher values including gratitude, compassion, acceptance, higher meaning, and forgiveness. These can be practiced by assigning one virtue to each day of the week (gratitude on Mondays, compassion on Tuesdays, acceptance on Wednesdays, higher meaning on , and forgiveness on Fridays). The weekends can be devoted to celebration (on Thursday) and reflection/prayer (on Thursday). Find creative ways or rituals to incorporate these principles into routine practice, includingyour self-care. Get curious and look for opportunities that come up at work, home, or in your relationships to practice the principle devoted to that day. Additional Suggested Resources Related to SMART: a. Online [facility] Resilient Living Program: https://resilience.[facility].org/ b. Dr. Jim Plata's TEDx talk on the neuroscience of stress can be found here: www.resilientoption.Binfire (a free resource). c. Dr. Plata has three books available on the topic: (1) The [facility] Guide to Stress-Free Living,(2) The [facility] Handbook for Happiness, and (3) Mindfulness Redesigned for the Twentieth Century. f. Morning Gratitude: https://www.[employer]izen [employer].com/results?search_query=morning+gratitude+anika e. Calm and Energize: This free meditation by Dr. Plata, available online, allows you to re-energize when feeling fatigued at work or during the day. The meditation can be found at the following link: [employer] tps://www.[employer].com/watch?v=ZOSQuH7JWf3 Other Suggested Resources: 1. ???What Makes A Good Life? Lessons from the longest study on Happiness?? by Martin Yang MD https://www.GigSocial.com/talks/martin_johnson_what_makes_a_good_life_lessons_from_t he_longest_study_on_happiness 2. ???The Happy Secret to Better Work?? by Britni Whitaker https://www.GigSocial.Binfire/talks/britni_naveen_the_happy_secret_to_better_work 3. ???The Power of Vulnerability?? by Doris?? Ed, PhD https://www.Jibestream/talks/rick_ed_on_vulnerability It was a privilege to be involved in Ms. Rojas???s care. A follow up has not been given at the current time, but I would be happy to see her in follow-up if needed. Please do not hesitate to contact me if there are any further questions. Session Time: 90 minutes Counseling Time: 90 minutes NG MIXER documented in this encounter Plan of Treatment Not on filedocumented as of this encounter Visit Diagnoses Diagnosis Stress documented in this encounter
--- OUTSIDE RECORDS SUMMARY | 2022-07-05 21:35 | XMS_ITS | Encounter Summary ---
:1980 Author Organization [facility] Address [address] [place] [id number] Care Team Providers Name Role Phone Unavailable Primary Care Provider Unavailable Reason for Visit Reason Comments 05/15/21 ARF/ Pt Request 03/15/2021 New Order Needed 03/20/2021 Ortho Denial Encounter Details Date Type Department Care Team Description 02/27/2021 Clinical Section of Executive [place], 1 ARF/ Pt Communication and International Chevy Nino M.D. Request; Medicine in [address] [place] [address] 03/15/2021 [place], [place] Order Needed; [address] [place] [phone] 03/20/2021 Ortho [place], [place] [phone] Denial [id number] (Work) [phone] Social History Tobacco Use Types Packs/Day Years Used Date Smoking Tobacco: Never Assessed Alcohol Habits Answer Date Recorded How often do you have a drink containing 4 or more times a w chalkyitsik 11/09/2021 alcohol? How many drinks containing alcohol do you have 1 or 2 11/09/2021 on a typical day when you are drinking? How often do you have six or more drinks on one Less than mo nthly 11/09/2021 occasion? Comment: Not asked Social Isolation Answer Date Recorded In a typical week, how many times do you Once a week 11/09/2021 talk on the phone with family, friends, or neighbors? How often do you get together with friends Twice a week 11/09/2021 or relatives? How often do you attend holiness or christian 1 to 4 times per year 11/09/2021 services? Do you belong to any clubs or organizations Yes 11/09/2021 such as holiness groups, unions, fraternal or athletic groups, or [...] place to sleep or slept in a mcc (including now)? 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 Ad Dahl. Addendum Note - Chevy Luna M.D. - 03/18/2021 12:00 PM CDT Addended by: CHEVY LUNA on: 03/18/2021 12:00 PM Modules accepted: Orders Addendum Note - Davon Crain RLay - 03/15/2021 3:12 PM CDT Addended by: DAVON CRAIN on: 03/15/2021 03:12 PM Modules accepted: Orders Telephone Encounter - Stephanie Henley - 03/15/2021 2:49 PM CDT PMR will NOT see for scoliosis related pain. They can keep the PT, but will need a new order for SPINE Consult. Do you still want PT for scoliosis? Addendum Note - Chevy Luna M.D. - 03/13/2021 12:54 PM CDT Addended by: CHEVY LUNA on: 03/13/2021 12:54 PM Modules accepted: Orders Addendum Note - Stephanie Sutton RLay - 03/13/2021 10:55 AM CDT Addended by: STEPHANIE SUTTON on: 03/13/2021 10:55 AM Modules accepted: Orders Telephone Encounter - Selvin Mares - 03/13/2021 10:27 AM CDT SUBJECTIVE CHIEF COMPLAINT / REASON FOR CALL 05/15/21 ARF and 03/05/2021 Audiology needed Name of caller/relationship to the patient: SPOUSE Patient expects communication via portal: No Phone number: [phone] Request topic and what needs to be addressed? Appointment/Visit Type/Schedule Procedure ?? Goal or summary: GI appt for GERD ?? Dates interested in: 05/15-05/17/21 ?? Additional comments: Bad heartburn/Acid reflux. Pt has used Tums/Antacids frequently. In December switched to a 14 day cycle of Prevacid. It was good for about a week and came back. Did another two week cycle, and it returned again. Addendum Note - Chevy Luna M.D. - 03/07/2021 12:59 PM CDT Addended by: CHEVY ULNA on: 03/07/2021 12:59 PM Modules accepted: Orders Addendum Note - Ethel Sheth RShahramNShahram - 03/06/2021 1:59 PM CDT Addended by: ETHEL SHETH on: 03/06/2021 01:59 PM Modules accepted: Orders Telephone Encounter - Stephanie Henley - 03/05/2021 3:52 PM CDT ENT will not see without a hearing test. Please order. Telephone Encounter - Heidy Sprague - 02/27/2021 12:09 PM CDT [facility] ARF Responses Name: Misti Rojas [facility] Number: [id number] Birthdate: 1980 Email: [email or web address] My Meds Patient's Role: Executive/professional Business/Employer: [employer] Gender: Female Height: 5'9Feet Inches: 69 Weight: 240lbs I decline HIV testing: No I decline Hepatitis C virus (HCV) testing: No CARE PROFILE Where was your last colon cancer screening performed: I've never had a colon screening If due, would you like this performed at [facility]?: No I prefer that [facility] perform my annual mammogram: Yes I prefer to have my pelvic and cervical cancer screening (Pap test) exam performed during my visit: Yes If yes, is this exam for routine care, or do you have a specific gynecological concern?: Routine Please let us know the month and year of your last Pap Smear: November 2016 Are you interested in a Women???s Health Clinic consultation during your upcoming [facility] visit:No Do you currently take any medications that alter blood clotting (i.e. blood thinners, antiplatelet medications, or aspirin)?: No Family History: Heart Attack Have you experienced a fracture after age 50 that occurred with lifting or after a fall from standing height or less: N/A Do you have a pacemaker or implanted cardiac defibrillator: No Do you have any other implantable devices?: No Are you currently receiving dialysis, have you ever received a kidney transplant, or have you ever been told that you have trouble with your kidneys: No Have you ever had an allergic reaction to contrast dye?: No How many medications do you take on a daily basis?: 0-5 Do you have concerns about sleep apnea: No Do you have a specific joint pain issue you would like addressed by a subspecialist during your [facility] exam: Yes Please select the joint(s) with pain: Low Back (Lumbar/sacral) Any previous evaluation or diagnosis: Yes, mild scoliosis How long have you had pain: 5-6 years Is your pain from a previous injury: No Any previous injection: No Please specify any medical concerns that you would like to address during your visit and include left or right body side if applicable: Overall sense of fatigue and sluggishness - what could be causes?Also have fluid retention, sun/heat sensitivity. Have done rheumatological testing which concluded it's not lupus (have a family history), and that I do have Raynaud's syndrome, with low vitamin D levels. Have started eating a higher nutrient-rich diet which is helpful. Is anything else going on - e.g., thyroid, what else? I had PCOS as well, where symptoms have subsided - is it connected? Please specify your first priority medical concern you have that you would like to address during your visit: Overall understanding of hormonal / thyroid / autoimmune system health, and to see what lifestyle or other changes could help improve my overall energy levels and wellbeing. I want to be proactive and make sure my health is in good shape into the future, and don't know what is causing all of this. Please specify your second priority medical concern you have that you would like to address during your visit: Back pain / joint stiffness that limits activity and causes pain. I'd like guidance for what specifically to do to improve this. Please specify your third priority medical concern you have that you would like to address during your visit: I get frequent ear infections - what is the cause? It can cause vertigo sometimes, ear pain, etc. I don't use Qtips, don't swim, it's really unclear to me why this has started happening in thelast few years. Have you had any previous ear surgeries?: No Do you have any known hearing loss or use of hearing aids?: No In the last three months, have you experienced any new onset of ringing, roaring or pulsing sounds in your ears lasting more than 2-3 minutes? (in one or both ears): No OPTIONAL SERVICES Are you interested in a Stress Management and Resiliency Training workshop: No Are you interested in a Sports Medicine injury evaluation?: No Travel Medicine Consultation including vaccinations and travel-based medical advice: No Would you like an appointment in the Department of Dermatology for a history of skin cancer or a current skin condition? If you do not have one of these conditions, you will not be scheduled with a humanities instructor: Yes Have you had a biopsy proven skin cancer in the last 7 years? If you select no, a skin check will bedone during your executive exam with your behavior interventionist: No Do you have a skin condition? If you select no, a skin check will be done during your executive examwith your behavior interventionist: Yes If yes, what type of skin condition do you have: Rosacea Dietitian consultation: No Eye exam: No Do you need a Federal Aviation Administration (FAA) pilot plant operator helper medical evaluation: No Do you need a commercial finance manager medical evaluation (FMC SA/DOT)?: No Yes, I want to schedule an appointment with a Genetic Counselor to explore whether Predictive Genomic Services would benefit me: No [facility] Programs The Healthy Living Program Physical Activity Experience: No Wellness Coaching Package Wellness Coaching Package: Yes Sports Medicine Center Runners and Walkers Performance Program (One to Two Hours to Two Days): No Golf Clinic Performance Program (Two Hours to One Day): No Sports Fitness Performance Program (Two Hours): No Performance Training and Nutrition Services: No Musculoskeletal Regenerative Medicine The Regenerative Medicine Consult Service at [facility] provides patients with educational guidanceand access to referrals to clinical practice areas [place] and/or clinical trials focusing on regenerative therapies. Are you interested in a Regenerative Medicine consultation?: No Payment of Claim: Please bill my medical insurance and submit any remaining balance to me at my homeaddress Accept the terms listed above: Yes documented in this encounter Plan of Treatment Not on filedocumented as of this encounter Visit Diagnoses Diagnosis Multisystem Laboratory Testing Adult - P rimary Fatigue Rosacea Otitis Media Chronic Bilateral Pain Low Back Unspecified Pap Smear Examination Screening Mammogram Breast Cancer Cardiac Vascular Disease Screening Screening Lipid Edema Gastroesophageal Reflux Disease Scoliosis documented in this encounter
--- OUTSIDE RECORDS SUMMARY | 2022-07-05 21:35 | XMS_ITS | Encounter Summary ---
:1980 Author Organization [facility] Address [address] [place] [id number] Care Team Providers Name Role Phone Unavailable Primary Care Provider Unavailable Reason for Visit Outpatient (Routine) - Closed Specialty Diagnoses / Procedures Referred By Contact Refer red To Contact Preventive Medicine Diagnoses Pap Smear Examination Leonora Lucero M.D. [facility] [address] [place] [phone] Referral ID Status Reason Start Date Expiration Date Visits Requ ested Visits Authorized [id number] Closed 11/13/2021 11/13/2022 1 1 Encounter Details Date Type Department Care Team Description 11/14/2021 Comprehensive Visit Section of Preventive, Elaine Torres Pap Smear Transportation and TOBY L[place] Examinati on Occupational Medicine C.N.P., in [facility].NFort [place], [place] M.S.N. [address] [place] [address] [place] [phone] Social History Tobacco Use Types Packs/Day Years [...] or relatives? How often do you attend sikh or restorationist 1 to 4 times per year 11/09/2021 services? Do you belong to any clubs or organizations Yes 11/09/2021 such as sikh groups, unions, fraternal or athletic groups, or [...] place to sleep or slept in a fpc (including now)? Education Answer Date Recorded What is the highest level of school Bachelor's degree (e.g., BA, AB, 11/09/2021 you have completed or the highest BS) degree you have received? 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 - 11/14/2021 9:00 AM CST SUBJECTIVE Chief Complaint: Limited SPEECH THERAPIST TECHNICIAN evaluation. HPI Mrs. Misti Rojas is a 41 y.o. female who was referred by Leonora Lucero M.D. ([facility]) for a limited SPEECH THERAPIST TECHNICIAN evaluation today in the Preventive Services Clinic ([facility]). SPEECH THERAPIST TECHNICIAN history was reviewed with patient. Menarche: at age 13 - 14 LMP: (10/24/2021) Periods are now normal and regular, history of PCOS with heavy menses in the past. Post-menopausal bleeding if applicable: N/A Vaginal/pelvic symptoms or concerns: none She does have a hemorrhoid that has been present since December,. She will follow up with her Executive health provider to discuss treatment options. Sexually active: YES () Dyspareunia: none Last Pap smear: (2017) Normal History of abnormal Pap smears: Abnormal Pap Smear ASCUS (2014) Negative HPV, follow up testing normal. History of ASHIA exposure: N/A Immunocompromised: no. Family history of SPEECH THERAPIST TECHNICIAN related malignancies: none SPEECH THERAPIST TECHNICIAN surgeries or procedures: none HRT use: none Contraception if applicable: had vasectomy. /Para: 10 -12 , Para 0 Vaginal births: none C-sections: none STI concerns: No concerns, no prior history Breast health: No concerns, first mammogram scheduled today. Patient's medical, surgical, social, and family history was reviewed and discussed as applicable to visit. Medications and allergies reviewed as applicable. OBJECTIVE Physical exam: Physical Exam Constitutional: This is a well nourished, well developed adult female who is alert and oriented x3. She is pleasant and cooperative, no acute distress is noted. She appears comparable to her stated age, her complexion is normal. Pelvic Exam: No inguinal adenopathy. Normal appearing external genitalia. Small speculum used for exam. Normal physiologic discharge without purulence or discoloration. Specimen obtained using the broom, spatula, and cytobrush. Bimanual Exam: No adnexal of cervical motion tenderness. ASSESSMENT / PLAN #1 Pap Smear Examination - Preventive Medicine - Preventive services consult (clinic) - ThinPrep w/HPV Co-Test Screen Mrs.Mary Trung Rojas was seen in the Preventive Services Clinic today for a limited Gynecology evaluation. FOLLOW UP: Per current guidelines, next screening Pap smear including HPV co- test would be recommended in Pending results from today's screening exam. If screening is normal a repeat pap smear would berecommended in 3-5 years, sooner if vaginal/pelvic symptoms or concerns. . Pelvic examinations are recommended in the interim for any pelvic symptoms. Results are encouraged to be shared with primary treating provider(s). Patient was given my contact card. Questions were answered to the best of my ability. Ready to learn, no apparent learning barriers were identified; learning preferences include listening. Explained diagnosis and treatment plan; patient/child/caregiver expressed understanding of the content. Total Time: 30 minutes. More than 50% of time was spent in direct patient counseling or coordinationof care. Answers for HPI/ROS submitted by the patient on 11/09/2021 Fatigue: Yes No eye issues: Yes No ENT issues: Yes No heart issues: Yes No respiratory issues: Yes Heartburn: Yes Back pain/stiffness: Yes No skin issues: Yes No neurologic issues: Yes No mental health issues: Yes No blood/lymph issues: Yes No urinary/reproductive issues: Yes ING SANDER TENDER documented in this encounter Plan of Treatment Not on filedocumented as of this encounter Procedures Procedure Name Priority Date/Time Associated Diagnosis Comme nts THINPREP W/HPV Routine 11/14/2021 9:15 AM Pap Smear Results for this CO-TEST SCREEN TURNING SANDER TENDER Examination procedure are in the results section. HPV WITH Routine 11/14/2021 9:15 AM Results f or this GENOTYPING, PCR, TURNING SANDER TENDER procedure a re in THINPREP the results section. documented in this encounter Results HPV with Genotyping, PCR, ThinPrep (11/14/2021 9:15 AM TURNING SANDER TENDER) [facility] gist Method Time Signature Specimen Thin Prep 11/19/2021 DTL Source Vial, 2:58 PM TURNING SANDER TENDER Cervix/Endoc ervix HPV High Risk Negative Negative 11/19/2021 DTL type 16, PCR 2:58 PM TURNING SANDER TENDER HPV High Risk Negative Negative 11/19/2021 DTL type 18, PCR 2:58 PM TURNING SANDER TENDER HPV other Negative Negative 11/19/2021 DTL High Risk 2:58 PM TURNING SANDER TENDER types, PCR Comment: The following Other High Risk HPV types were not detected: 31, 33, 35, 39, 45, 51, 52, 56, 58, 59, 66, and 68 This test was ordered in the context of a [facility] SPEECH THERAPIST TECHNICIAN Cytology case; this result should be int erpreted within the context of the SPEECH THERAPIST TECHNICIAN cytology report. Specimen Anatomical Collection Method Collection Time Receive d Time (Source) Location / / Volume Laterality Varies 11/14/2021 9:15 AM TURNING SANDER TENDER 11:37 AM TURNING SANDER TENDER Nadia Torres APRN, C.N.P., D.N.P., M.S.N. LAB MICROB IOLOGY - GENERAL ORDERABLES Performing Organization Address City/[facility]/ZIP Code Phon e Number [facility] - [address] [place], [place] [address] [place] [address] Laboratories-[facility] [address] [facility] ThinPrep w/HPV Co-Test Screen (11/14/2021 9:15 AM TURNING SANDER TENDER) Component Value Ref Test Analysis Performed Pathologis t Range Method Time At Signature 11/21/2021 DTL 2:54 PM TURNING SANDER TENDER Report CRISTHIAN Smith(ASCP) 11/21/2021 DT L electronically 2:54 PM signed by TURNING SANDER TENDER I verify that I have examined all relevant slides/materials for the specimen(s) and rendered or confirmed the diagnosis. Gross Description Received specimen 11/21/2021 DTL in a ThinPrep 2:54 PM vial. TURNING SANDER TENDER Pap Test Source Cervical/Endocervi 11/21/2021 DTL nithya 2:54 PM TURNING SANDER TENDER Clinical History Routine exam 11/21/2021 DTL 2:54 PM TURNING SANDER TENDER Hormone None/Not known 11/21/2021 DTL Therapy/Contracep 2:54 PM tives TURNING SANDER TENDER Interpretation Cervical/Endocervical ??(ThinPrep): 11/21/2021 DTL 2:54 PM Satisfactory for Evaluation TURNING SANDER TENDER Negative for Intraepithelial Lesion or Malignancy ??High Risk HPV testing results are NEGATIVE. See specific genotype results below. HPV with Genotyping, PCR, ThinPrep: ??HPV High Risk Type 16, PCR: ??NEGATIVE ??HPV High Risk Type 18, PCR: ??NEGATIVE ??HPV other High Risk types, PCR: ??NEGATIVE Other High Risk HPV types include: 31, 33, 35, 39, 45, 51, 52, 56, 58, 59, 66, and 68. Specimen Anatomical Collection Method Collection Time Receive d Time (Source) Location / / Volume Laterality Varies 11/14/2021 9:15 AM (Cervix/Endocerv TURNING SANDER TENDER 11:37 AM CS T ix) Narrative This result has an attachment that is no t available. Nadia Torres APRN, C.N.P., D.N.P., M.S.N. LAB PAP PA THDX ORDERABLES Performing Organization Address City/[facility]/ZIP Code Phon e Number [facility] - [address] [place], [place] [address] [place] [address] Laboratories-[facility] [address] documented in this encounter Visit Diagnoses Diagnosis Pap Smear Examination documented in this encounter
--- OUTSIDE RECORDS SUMMARY | 2022-07-05 21:35 | XMS_ITS | Encounter Summary ---
:1980 Author Organization [facility] Address [address] [place] [address] Care Team Providers Name Role Phone Unavailable Primary Care Provider Unavailable Reason for Visit Outpatient (Routine) - Closed Specialty Diagnoses / Procedures Referred By Contact Refer red To Contact Executive Medicine Diagnoses Cardiac Vascular Disease Screening Screening Examination Diabetes Mellitus Screening Examination For Thyroid Disorder Hearing Exam Leonora Lucero M.D. [place] [address] [place] [address] Referral ID Status Reason Start Date Expiration Date Visits Requ ested Visits Authorized [id number] Closed 09/10/2021 09/10/2022 1 1 Encounter Details Date Type Department Care Team Description 11/21/2021 Telemedicine Section of Executive and Leonora Lucero, Cardiac Vascular Disease Screening; International Medicine MLori Screening Examination Diabetes Mellitus; in [facility] botanical technical officer [address] [facility] Screening Examination For Thyroid Disord er; [address] [place], [place] Hearing Exam [place], [place] [phone] Social History Tobacco Use Types Packs/Day Years [...] or relatives? How often do you attend latter-day or amish 1 to 4 times per year 11/09/2021 services? Do you belong to any clubs or organizations Yes 11/09/2021 such as latter-day groups, unions, fraternal or athletic groups, or [...] place to sleep or slept in a [facility] (including now)? Education Answer Date Recorded What is the highest level of school Bachelor's degree (e.g., BA, AB, 11/09/2021 you have completed or the highest BS) degree you have received? 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 - 11/21/2021 11:00 AM CST SUBJECTIVE CHIEF COMPLAINT / REASON FOR VISIT This is a summary of Ms. Rojas's visits to [facility] at [facility]. This was discussed in a face to face encounter. I have reviewed and updated the patient's allergies and medications within the electronic health record. OBJECTIVE DIAGNOSTICS LABS/IMAGING: Comprehensive Visit on 11/15/2021 Component Date Value ? ? Lipoprotein (a) 11/13/2021 <7 Comprehensive Visit on 11/14/2021 Component Date Value ??? Specimen Source 11/14/2021 Thin Prep Vial, Cervix/Endocervix ??? HPV High Risk type 16, P* 11/14/2021 Negative ??? HPV High Risk type 18, P* 11/14/2021 Negative ??? HPV other High Risk type* 11/14/2021 Negative Appointment on 11/13/2021 Component Date Value ? ? Centromere Ab, IgG, S 11/13/2021 <0.2 Appointment on 11/13/2021 Component Date Value ??? Cortisol AM Result 11/13/2021 8.8 ??? Ferritin, S 11/13/2021 15 ??? Creatine Kinase (CK), S 11/13/2021 74 ??? Antinuclear Ab, S 11/13/2021 0.4 ? ? Cyclic Citrullinated Pep* 11/13/2021 <15.6 ??? Interpretation 11/13/2021 SEE COMMENT ??? C-Reactive Protein (CRP)* 11/13/2021 10.8 (A) ??? Vitamin B12 Assay, S 11/13/2021 223 ??? Folate, S 11/13/2021 14.1 Appointment on 11/13/2021 Component Date Value ??? Cholesterol, Total, S 11/13/2021 191 ??? Triglycerides, S 11/13/2021 165 (A) ??? Cholesterol, HDL, S 11/13/2021 56 ??? Calculated LDL 11/13/2021 102 ??? Non HDL Cholesterol 11/13/2021 135 ??? Potassium, S 11/13/2021 4.4 ??? Sodium, S 11/13/2021 138 ??? Alkaline Phosphatase, S 11/13/2021 70 ??? Alanine Aminotransferase* 11/13/2021 20 ??? Albumin, S 11/13/2021 4.5 ??? Calcium, Total, S 11/13/2021 9.2 ??? Creatinine, S 11/13/2021 0.92 ??? eGFR-Non Black/ A* 11/13/2021 78 ??? eGFR-Black/ Ameri* 11/13/2021 89 ??? Glucose, P 11/13/2021 94 ??? Last Intake 11/13/2021 13 ??? Hemoglobin 11/13/2021 13.0 ??? Hematocrit 11/13/2021 39.6 ??? Erythrocytes 11/13/2021 4.38 ??? MCV 11/13/2021 90.4 ??? RBC Distrib Width 11/13/2021 13.0 ??? Platelet Count 11/13/2021 228 ??? Leukocytes 11/13/2021 6.6 ??? Neutrophils 11/13/2021 4.57 ??? Lymphocytes 11/13/2021 1.40 ??? Monocytes 11/13/2021 0.45 ??? Eosinophils 11/13/2021 0.12 ??? Basophils 11/13/2021 0.04 ? ? 25-Hydroxy D2 11/13/2021 <4.0 ??? 25-Hydroxy D3 11/13/2021 25 ??? 25-Hydroxy D Total 11/13/2021 25 ??? TSH, Sensitive, S 11/13/2021 1.3 Appointment on 11/13/2021 Component Date Value ??? Source 11/13/2021 Urine, Urine, Midstream ??? Color, U 11/13/2021 Yellow ??? Clarity, U 11/13/2021 Cloudy (A) ??? Protein, U 11/13/2021 6 ??? Protein/Osmolality 11/13/2021 0.26 ??? Predicted 24 Hr Protein 11/13/2021 200 ??? Predicted Range 11/13/2021 49-809 ??? Microscopy 11/13/2021 Abnormal ? ? RBC 11/13/2021 <3 ??? WBC 11/13/2021 1-3 ??? Squamous Epithelial Cell* 11/13/2021 4-10 ??? Bacteria 11/13/2021 Present (A) ??? pH, Random, U 11/13/2021 6.8 ??? Osmolality, U 11/13/2021 227 ??? Hemoglobin, QL, U 11/13/2021 Negative ??? Leukocyte Esterase, U 11/13/2021 Negative ??? Nitrite, U 11/13/2021 Negative ??? Ketone, U 11/13/2021 Negative ??? Glucose, U 11/13/2021 Negative Appointment on 11/13/2021 Component Date Value ??? SARS CoV-2 RNA, PCR, Nadia* 11/13/2021 Swab, Nasopharynx ??? SARS CoV-2 RNA, PCR 11/13/2021 Undetected BI BREAST SCREENING BILATERAL WITH TOMOSYNTHESIS DENSITY: c. The breast(s) are heterogeneously dense, which may obscure small masses. FINDINGS: No mammographic findings of malignancy. IMPRESSION: Negative. ? DX LUMBAR SPINE 2-3 VIEWS, DX SACROILIAC JOINTS 3+ VIEWS IMPRESSION: Convex right lumbar curve. Minimal lower lumbar facet arthropathy. Mild degenerative arthritis both sacroiliac joints. DX CHEST AP OR PA AND LATERAL 2 VIEWS IMPRESSION: Negative chest. 12 LEAD ECG IMPRESSION: Normal sinus rhythm Normal ECG No previous ECGs available Stress ECG Impressions: 1. Stress ECG was negative for ischemia 2. Exercise capacity was limited </= 70% F AC 3. No prior test for comparison Overnight oximetry Overnight oximetry was performed on room air and without any assisted breathing device. Sleep quality was described as worse than usual. Baseline oxygen saturation was normal and remained normal through the night. There was one episode of increased oscillatory variation with minimal desaturation which appears more artifactual than real. Impression: Likely normal study Autonomic reflex screen CONCLUSION:?? Abnormal study. There is evidence of patchy postganglionic sympathetic sudomotor and minimal cardiovagal impairment. These findings can be seen in very mild limited cholinergic neuropathies. ASSESSMENT / PLAN #1 Gastroesophageal Reflux Disease Appreciate the recommendations from Dr. Conklin in the Gastroenterology Clinic. The patient was advised to stay on the omeprazole 20 mg daily to be taken 30-60 minutes before her 1st meal of the day. In the future she may taper the medication to every other day for several weeks and then every 3rd day before stopping. She may take Pepcid or Tums as needed for symptom relief. But if she notices that she is taking p.r.n. medications more than 2 to 3 times a week then the dose the omeprazole can be increased. EGD was not recommended at this time. She was also provided lifestyle interventions such as dietary modifications, avoiding laying down for at least 3 hours after her meal and raising the head end of her bed. ?? #2 Otitis Media Recurrent Left Patient plans to return for an ENT evaluation. ?? #3 Hypertriglyceridemia #4 Cardiac Vascular Disease Screening #5 BMI 36.75 kg/m2 #6 Family history of premature coronary artery disease We reviewed her lipid panel today which reveals an elevated triglyceride level of 165 mg/dL. Ten year ASCVD risk was noted to be 0.4% with an optimal of 0.4%. This is low risk. However her history of PCOS does double the baseline ASCVD risk. Stress ECG was normal, lower than average exercise capacity. Lipoprotein a level was normal. At this time statin therapy was not recommended. We discussed cutting down on alcohol and carbohydrates can help lower the triglyceride levels. We also discussed her current BMI which is consistent with stage II obesity and the initial goal of weightloss with an aim to lower the BMI to less than 30 kilogram/meter sq. We discussed the Mediterranean style diet- incorporating at least 5 servings of vegetables and/or fruits, cutting down on red meats, incorporating whole grains, nuts/seeds, using olive oil for cooking. We also discussed moderate intensity exercise with a goal of at least 150 minutes per week and additional 10-15 minutes strength training at least twice a week. #7 Fatigue #8 Elevated TONI #9 Raynaud's Disease #10 Family history of autoimmune conditions All her test results for evaluation of autoimmune disorders were reassuring. She did have a mildly elevated CRP which appears to be nonspecific and could be related to obesity. Overnight oximetry test was inconclusive as it appears that the probe got displaced around 1 a.m.. At this time the patient would like to focus on weight loss and if symptoms of snoring continue she would plan to pursue a sleep study. Anticentromere antibody level was also negative, a symptoms seem to be consistent with primary Raynaud's. ?? #11 Rosacea Recommendations from the Dermatology Clinic evaluation are appreciated. Patient was advised on a trial oxymetazoline which she can obtain [id number] as Afrin nasal spray. She has already started using the Cetaphil cream and has already noticed improvement in the redness. Laser treatment was also discussed as the possible option in the future. #12 Pain Low Back Unspecified Appreciate the recommendations from Dr. Campos in the PMR Clinic. The back pain is likely from the facet and SI joints with a myofascial component. There was no evidence of degenerative arthritis in her hip and the pain that she is experiencing is likely myofascial including gluteus medius, minimus??and psoas muscle A comprehensive stretching and strengthening program was recommended. She was provided with a physical therapy referral that she can pursue locally. #13 Anhidrosis #14 Heat intolerance The autonomic reflex screen revealed patchy postganglionic sympathetic sudomotor and minimal cardiovagal impairment which can be seen in very mild limited cholinergic neuropathies. The thermoregulatorysweat test is pending. She was also referred to the neurology clinic for further evaluation of autonomic neuropathy. The patient plans to return to [facility] for these tests. ?? #15 Stress She completed the stress management and resilience training program. #16 Low ferritin Likely due to menstrual periods Hemoglobin is normal. The patient does report symptoms consistent with restless legs. Recommended initiating iron supplement with Vitron-C 1 tablet daily at bedtime. Side effects were discussed especially constipation. I have recommended checking the ferritin level again in 3 months which she will plan to pursue locally with her PCP. ?? HEALTH MAINTENANCE: - Hypertension screening: ??Negative - Diabetes mellitus screening: ?? fasting blood glucose 94 mg/dL - Alcohol misuse screening: ?? recommended cutting down on alcohol intake, especially with elevated triglyceride levels. Not more than 7 standard drinks per week, but advised the patient to limit as much as possible - Tobacco misuse screening: ??Negative - Drug illicit screening: ??Negative - Depression screening: ??Negative - Obesity screening:?BMI 36.75 kilogram/meter sq - Skin cancer prevention- appropriate use of sunscreen discussed - Vaccination:? Tdap: 09/28/2015, repeat booster in 10 years Shingrix: Recommended at age 50 PCV-13: Recommended at age 65 PPSV-23: Recommended at age 65 Influenza: Patient reports having received the influenza vaccine She has received 3 doses of the COVID-19 vaccine - Colon Cancer Screening:? recommended initiating colon cancer screening at age 45 - Breast cancer screening: mammogram 11/14/2021. Repeat annually - Cervical cancer screening: Pap completed, 11/14/2021. Results are pending FUTURE ORDERS: Ferritin level PATIENT EDUCATION: Ready to learn, no apparent learning barriers were identified; learning preferences include listening. Explained diagnosis and treatment plan; patient expressed understanding of the content. ITURE SPRAYER documented in this encounter Plan of Treatment Not on filedocumented as of this encounter Visit Diagnoses Diagnosis Cardiac Vascular Disease Screening Screening Examination Diabetes Mellitus Screening Examination For Thyroid Disord er Hearing Exam documented in this encounter
--- OUTSIDE RECORDS SUMMARY | 2022-07-05 21:35 | XMS_ITS | Encounter Summary ---
:1980 Author Organization [facility] Address [address] [place] [address] Care Team Providers Name Role Phone Unavailable Primary Care Provider Unavailable Reason for Visit Reason Comments COVID Inquiry Encounter Details Date Type Department Care Team Description 02/11/2021 Clinical Communication Section of Executive Dougie Gambino Inquiry and Joaquin Hansen M.D. Medicine in [place], [facility] [address] [place], [place] [address] [facility] [address] [place], [place] [phone] (Work) [phone] Social History Tobacco Use Types Packs/Day Years Used Date Smoking Tobacco: Never Assessed Alcohol Habits Answer Date Recorded How often do you have a drink containing 4 or more times a w lower elwha 11/09/2021 alcohol? How many drinks containing alcohol [...] or relatives? How often do you attend presybeterian or lutheran 1 to 4 times per year 11/09/2021 services? Do you belong to any clubs or organizations Yes 11/09/2021 such as presybeterian groups, unions, fraternal or athletic groups, or [...] minutes do you engage in exercise at is 30 min 11/09/2021 level? Stress Answer [...] place to sleep or slept in a [place] [facility] [place] (including now)? 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 : Not recommended to test Plan: Endpoint recommendation: Followed regional OTG *Reminder if sending patient for testing in [facility] or [facility], route encounter to the correct testing pool. documented in this encounter Plan of Treatment Not on filedocumented as of this encounter Visit Diagnoses Not on filedocumented in this encounter
--- OUTSIDE RECORDS SUMMARY | 2022-07-05 21:35 | XMS_ITS | Encounter Summary ---
:1980 Author Organization [facility] Address [address] [place] [address] Care Team Providers Name Role Phone Unavailable Primary Care Provider Unavailable Reason for Referral Outpatient (Routine) - Closed Specialty Diagnoses / Procedures Referred By Contact Refer red To Contact Diagnoses Pain Low Back Unspecified Leonora Lucero M.D. [facility] Procedures DX Sacroiliac Joints 3+ Views [address] [place] [address] Referral ID Status Reason Start Date Expiration Date Visits Requ ested Visits Authorized [id number] Closed 11/13/2021 11/13/2022 1 1 utpatient (Routine) - Closed Specialty Diagnoses / Procedures Referred By Contact Refer red To Contact Diagnoses Pain Low Back Unspecified Leonora Lucero M.D. [facility] Procedures DX Lumbar Spine 2-3 Views [address] [place], [place] [address] Referral ID Status Reason Start Date Expiration Date Visits Requ ested Visits Authorized [id number] Closed 11/13/2021 11/13/2022 1 1 MENT PROCESSOR Reason for Visit Outpatient (Routine) - Closed Specialty Diagnoses / Procedures Referred By Contact Refer red To Contact Diagnoses Pain Low Back Unspecified Leonora Lucero M.D. [facility] Procedures DX Sacroiliac Joints 3+ Views [address] [place] [address] Referral ID Status Reason Start Date Expiration Date Visits Requ ested Visits Authorized [id number] Closed 11/13/2021 11/13/2022 1 1 Encounter Details Date Type Department Care Team Description 11/13/2021 Hospital Encounter Department of Leonora Lucero, Pain Low Back Radiology, Parminder Godinez Unspecified Building, in [address] [place] [address] [place] [address] [place], [place] [phone] (Work) [phone] Social History Tobacco Use Types Packs/Day Years [...] or relatives? How often do you attend mu-ism or voodoo 1 to 4 times per year 11/09/2021 services? Do you belong to any clubs or organizations Yes 11/09/2021 such as mu-ism groups, unions, fraternal or athletic groups, or [...] place to sleep or slept in a longterm (including now)? Education Answer Date Recorded What is the highest level of school Bachelor's degree (e.g., BA, AB, 11/09/2021 you have completed or the highest BS) degree you have received? 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 DX LUMBAR SPINE RAD - Routine 11/13/2021 4:48 Pain Low Back Results for this 2-3 VIEWS (most inpatients PM DOCUMENT PROCESSOR Unspecified procedure a re in and all the results outpatients) section. documented in this encounter Results DX Sacroiliac Joints 3+ Views (11/13/2021 4:48 PM DOCUMENT PROCESSOR) Anatomical Region Laterality Modality Sacral Spine, Musculoskeletal RST LOS, Musculoskeletal N/A Digital Radiography ARZ LOS, Muskuloskeletal FLA LOS Specimen (Source) Anatomical Collection Method Collection Time Re ceived Time Location / / Volume Laterality 11/13/2021 4:51 PM DOCUMENT PROCESSOR Impressions 11/13/2021 4:52 PM DOCUMENT PROCESSOR Convex right lumbar curve. Minimal lower lumbar facet arthropathy. Mild degenerative arthritis both sacroiliac joints. Narrative 11/13/2021 4:52 PM DOCUMENT PROCESSOR EXAM: ??DX LUMBAR SPINE 2-3 VIEWS, DX SACROILIAC JOINTS 3+ VIEWS Procedure Note Higinio Aguilar M.D. - 11/13/2021Format ting of this note might be different from the original. EXAM: DX LUMBAR SPINE 2-3 VIEWS, DX SACR OILIAC JOINTS 3+ VIEWS IMPRESSION: Convex right lumbar curve. Minimal lower lumbar facet arthropathy. Mild degenerative arthritis both sacroiliac joints. Leonora Lucero M.D. [facility] PROCE DURJAVIER DX Lumbar Spine 2-3 Views (11/13/2021 4:48 PM DOCUMENT PROCESSOR) Anatomical Region Laterality Modality Lumbar Spine, Musculoskeletal RST LOS, Neuroradiology N/A Digital Radiography ARZ LOS, Muskuloskeletal FLA LOS Specimen (Source) Anatomical Collection Method Collection Time Re ceived Time Location / / Volume Laterality 11/13/2021 4:51 PM DOCUMENT PROCESSOR Impressions 11/13/2021 4:52 PM DOCUMENT PROCESSOR Convex right lumbar curve. Minimal lower lumbar facet arthropathy. Mild degenerative arthritis both sacroiliac joints. Narrative 11/13/2021 4:52 PM DOCUMENT PROCESSOR EXAM: ??DX LUMBAR SPINE 2-3 VIEWS, DX SACROILIAC JOINTS 3+ VIEWS Procedure Note Higinio Aguilar M.D. - 11/13/2021Format ting of this note might be different from the original. EXAM: DX LUMBAR SPINE 2-3 VIEWS, DX SACR OILIAC JOINTS 3+ VIEWS IMPRESSION: Convex right lumbar curve. Minimal lower lumbar facet arthropathy. Mild degenerative arthritis both sacroiliac joints. Leonora BRICENO DIAGNOSTIC IMAGING PROCE HAMIDA documented in this encounter Visit Diagnoses Diagnosis Pain Low Back Unspecified documented in this encounter
--- OUTSIDE RECORDS SUMMARY | 2022-07-05 21:35 | XMS_ITS | Encounter Summary ---
:[address] [facility] Address [address] [place] [address] Care Team Providers Name Role Phone Unavailable Primary Care Provider Unavailable Encounter Details Date Type Department Care Team Description 11/14/2021 Diagnostic Division of Pulmonary Henry Lucero M.D. Fatigue Medicine in [place], [facility] [address] [place], [place] [address] [facility] [address] [place] [address] [phone] Social History Tobacco Use Types Packs/Day Years [...] or relatives? How often do you attend confucianist or sabianist 1 to 4 times per year 11/09/2021 services? Do you belong to any clubs or organizations Yes 11/09/2021 such as confucianist groups, unions, fraternal or athletic groups, or [...] place to sleep or slept in a snf (including now)? Education Answer Date Recorded What is the highest level of school Bachelor's degree (e.g., BA, AB, 11/09/2021 you have completed or the highest BS) degree you have received? 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 documented in this encounter Results EXE overnight oximetry (11/14/2021) Specimen (Source) Anatomical Location Collection Method / Collectio n Time Received Time / Laterality Volume 11/14/2021 Narrative ZULY HO - 11/20/2021 1:40 PM CS T This result has an attachment that is no t available. See PDF report for results Procedure Note Ferny Silva M.D., Ph.D. - 022 See PDF report for results Leonora Lucero M.D. PFT ORDERABLES Performing Organization Address City/State/ZIP Code Phon e Number [place] [facility] documented in this encounter Visit Diagnoses Diagnosis Fatigue documented in this encounter
--- OUTSIDE RECORDS SUMMARY | 2022-07-05 21:35 | XMS_ITS | Encounter Summary ---
:1980 Author Organization [facility] Er Address [address] [place] [address] Care Team Providers Name Role Phone Unavailable Primary Care Provider Unavailable Reason for Referral Outpatient (Routine) - Closed Specialty Diagnoses / Procedures Referred By Contact Refer red To Contact Diagnoses Leonora Russell M.D. [facility] Procedures Autonomic reflex Screen [address] [place] [address] Referral ID Status Reason Start Date Expiration Date Visits Requ ested Visits Authorized [id number] Closed 11/13/2021 11/13/2022 1 1 8[employer] GR[employer] TE[employer] Reason for Visit Outpatient (Routine) - Closed Specialty Diagnoses / Procedures Referred By Contact Refer red To Contact Diagnoses Leonora Russell M.D. [facility] Procedures Autonomic reflex Screen [address] [place] [address] Referral ID Status Reason Start Date Expiration Date Visits Requ ested Visits Authorized [id number] Closed 11/13/2021 11/13/2022 1 1 Encounter Details Date Type Department Care Team Description 11/15/2021 Hospital Encounter Department of Neurology Chad Lucero, Elisa in [facility] fer Godinez [address] [facility] [address] [place] [address] [place], [place] [phone] (Wo rk) Social History Tobacco Use Types Packs/Day Years [...] or relatives? How often do you attend tenriism or hoahaoism 1 to 4 times per year 11/09/2021 services? Do you belong to any clubs or organizations Yes 11/09/2021 such as tenriism groups, unions, fraternal or athletic groups, or [...] place to sleep or slept in a detention (including now)? Education Answer Date Recorded What is the highest level of school Bachelor's degree (e.g., BA, AB, 11/09/2021 you have completed or the highest BS) degree you have received? 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 omeprazole (PriLOSEC) Take 20 mg by mouth [address] capsule every morning before breakfast. omeprazole (PriLOSEC) Take 1 capsule (20 mg [address] capsule total) by mouth every morning before breakfast. documented as of this encounter Plan of Treatment Not on filedocumented as of this encounter Procedures Procedure Name Priority Date/Time Associated Diagnosis Comme nts AUTONOMIC REFLEX Routine 11/15/2021 1:30 PM Anhidrosis Resul ts for this SCREEN [employer] procedure are i n the results section. documented in this encounter Results Autonomic reflex Screen (11/15/2021 1:30 PM 8[employer] GRADE MATHE[employer] TEACHER) Specimen (Source) Anatomical Collection Method Collection Time Re ceived Time Location / / Volume Laterality 11/15/2021 12:45 PM [employer] TE[employer]ER Narrative [facility] - 11/15/2021 2:02 PM 8TH GRADE MATHEMAT[employer] TEACHER FINAL ? REPORT ? AUTONOMIC REFLEX SCREEN ? [phone] ? A ge: 41 ?Location: [facility] ? Lab #: [id number] Misti Rojas ? Sex : F ? Order ID: [id number] ? Date: 11/15/2021 : 1980 Autonomic Profile Grinder: Jhonatan Granados ([id number]) ?CONCLUSION Abnormal study. 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 ?QUANTITATIVE AXON REFLEX SWEAT TEST (QSWEAT) ?Test ? Latency ??Sweat Output ??Sweat Output Normal Cutoff Side ?Site ? Current ?? Dura tion ? (min) ?(uL) ?5th (10th) Percentile ? (mA) ? (min) ? L ? Forearm ? 2 ?9.9 ?1.0 ? 0.56 ? F: ?? 0.08 (0.13) L ? Proximal Leg ?2 ?9.9 ?2.1 ? 0.12 ? F: ?? 0.19 (0.31) L ? Distal Leg ?2 ?9.9 ?2.0 ? 0.08 ? F: ?? 0.14 (0.23) L ? Foot ?2 ?9.9 ?1.1 ? 0.32 ? F: ?? 0.07 (0.14) Comments on Sudomotor Test: QSART respon ses were reduced at the leg sites and normal at all other sites. ?DEEP BREATHING & VALSALVA MANEUVER RESPONSES ?Result ? Normal Cutoff Deep Breathing ?Heart Rate Range (bpm) ? 7.7 ? > 10 Valsalva Maneuver ? Valsalv a Ratio ? 1.65 ? > 1.36 Comments on Deep Breathing: ??Heart rate responses to deep breathing were reduced. Comments on Valsalva maneuver: (A) Heart rate responses to the Valsalva maneuver were normal. (B) Gerw-ih-kwhm blood pressure response s to the Valsalva maneuver were normal. ?B LOOD PRESSURE AND HEART RATE RESPONSES TO TILT ? BP (mmHg) ?Heart Rate (BPM) ?Supine ? 118/72 ? 68 ?Tilt 1 min ? 120/78 ? 76 ?Tilt 2 min ? 124/80 ? 71 ?Tilt 3 min ? 122/74 ? 77 ?Tilt 5 min ? 118/70 ? 71 ?Tilt 10 min ?122/74 ? 77 Comments on Tilt: Patient was tilted for 5 minutes. Orthostatic hypotension was not detected. Heart rate response was normal. The patient reported no symptoms. -99 = missing value ?? Leonora Lucero M.D. NEUROLOGY ORDERABLES Performing Organization Address City/State/ZIP Code Phon e Number [facility] documented in this encounter Visit Diagnoses Diagnosis Anhidrosis documented in this encounter
--- OUTSIDE RECORDS SUMMARY | 2022-07-05 21:35 | XMS_ITS | Encounter Summary ---
:1980 Author Organization [facility] Address [address] [place] [address] Care Team Providers Name Role Phone Unavailable Primary Care Provider Unavailable Encounter Details Date Type Department Care Team Description 11/14/2021 Ancillary Procedure Department of Dermatology Social History Tobacco Use Types Packs/Day Years [...] or relatives? How often do you attend protestant or orthodox 1 to 4 times per year 11/09/2021 services? Do you belong to any clubs or organizations Yes 11/09/2021 such as protestant groups, unions, fraternal or athletic groups, or [...] place to sleep or slept in a custodial (including now)? Education Answer Date Recorded What is the highest level of school Bachelor's degree (e.g., BA, AB, 11/09/2021 you have completed or the highest BS) degree you have received? 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 documented in this encounter Results Face 507-Dermatology Image Exam (11/14/2021 12:00 AM MIXING MACHINE ATTENDANT) Specimen (Source) Anatomical Location Collection Method / Collectio n Time Received Time / Laterality Volume Narrative [facility] - 11/14/2021 2:59 PM MIXING MACHINE ATTENDANT This order has been created and auto-finalized to support the import of images acquired without order. The clini nithya documentation to support these images can be found on the encounter justine t produced images. Provider Not In System IMG NON RAD IMAGING PROCEDUR ES Performing Organization Address City/State/ZIP Code Phon e Number [facility] NA documented in this encounter Visit Diagnoses Not on filedocumented in this encounter
--- OUTSIDE RECORDS SUMMARY | 2022-07-05 21:35 | XMS_ITS | Encounter Summary ---
:1980 Author Organization [facility] Address [address] [place] [id number] Care Team Providers Name Role Phone Unavailable Primary Care Provider Unavailable Reason for Referral Outpatient (Routine) - Closed Specialty Diagnoses / Referred By Referred To Cont act Procedures Contact Gastroenterology and Diagnoses Gastroesophageal Reflux Disease Leonora Lucero [facility] Hepatology Herbert [address] [place] [address] Referral ID Status Reason Start Date Expiration Date Visits Requ ested Visits Authorized [id number] Closed 10/17/2021 10/17/2022 1 1 utpatient (Routine) - Closed Specialty Diagnoses / Procedures Referred By Contact Refer red To Contact Diagnoses Cardiac Vascular Disease Screening Leonora Lucero M.D. [facility] Procedures Exercise Treadmill - Order for 40 years and greater [address] [place] [address] Referral ID Status Reason Start Date Expiration Date Visits Requ ested Visits Authorized [id number] Closed 09/10/2021 09/10/2022 1 1 utpatient (Routine) - Closed Specialty Diagnoses / Procedures Referred By Contact Refer red To Contact [facility] Diagnoses Cardiac Vascular Disease Screening Screening Examination Diabetes Mellitus Screening Examination For Thyroid Disorder Hearing Exam Leonora Lucero M.D. [facility] [address] [place] [address] Referral ID Status Reason Start Date Expiration Date Visits Requ ested Visits Authorized [id number] Closed 09/10/2021 09/10/2022 1 1 utpatient (Routine) - Closed Specialty Diagnoses / Procedures Referred By Contact Refer red To Contact Diagnoses Cardiac Vascular Disease Screening Leonora Lucero M.D. [facility] Procedures ECG 12 Lead [address] [place] [phone] Referral ID Status Reason Start Date Expiration Date Visits Requ ested Visits Authorized [id number] Closed 09/10/2021 09/10/2022 1 1 utpatient (Routine) - Closed Specialty Diagnoses / Referred By Contact Referred To Contact Procedures Cardiovascular Diseases / Diagnoses Cardiac Vascular Disease Screening Leonora Lucero [facility] Cardiovascular Disease M.Sukhwinder [address] [place] [address] Referral ID Status Reason Start Date Expiration Date Visits Requ ested Visits Authorized [id number] Closed 09/10/2021 09/10/2022 1 1 C DIRECTOR Reason for Visit Reason Comments Encounter Details Date Type Department Care Team Description 09/09/2021 Clinical Communication Section of Executive Henry Lucero, and [facility] in [place], [facility] [address] [place], [place] [address] [place] [phone] [place], [place] [phone] (Work) [phone] Social History Tobacco Use Types Packs/Day Years Used Date Smoking Tobacco: Never Assessed Alcohol Habits Answer Date Recorded How often do you have a drink containing 4 or more times a w [place] 11/09/2021 alcohol? How many drinks containing alcohol [...] or relatives? How often do you attend voodoo or shinto 1 to 4 times per year 11/09/2021 services? Do you belong to any clubs or organizations Yes 11/09/2021 such as voodoo groups, unions, fraternal or athletic groups, or [...] or slept in a fpc (including now)? Sex Assigned at Date Recorded Female 11/09/2021 9:31 AM MUSIC DIRECTOR documented as of this encounter Miscellaneous Notes Addendum Note - Leonora Lucero M.D. - 10/17/2021 4:58 PM MUSIC DIRECTOR Addended by: LEONORA LUCERO on: 10/17/2021 04:58 PM Modules accepted: Orders C DIRECTOR Addendum Note - Jigna Boone RLay - 10/17/2021 4:55 PM MUSIC DIRECTOR Addended by: JIGNA BOONE on: 10/17/2021 04:55 PM Modules accepted: Orders C DIRECTOR Telephone Encounter - Serge Ray - 10/17/2021 11:58 AM CST Pt called and she has GERD pretty badly and would like to be seen for that when she is here. Can that be ordered? Thanks. C DIRECTOR Telephone Encounter - Selvin Mares - 09/09/2021 4:58 PM CST No ARF returned; please order Basics. Thank you! C DIRECTOR documented in this encounter Plan of Treatment Scheduled Referrals Name Type Priority Associated Diagnoses Order S chedule Cardiovascular Disease Outpatient Routine Cardiac Vascular E xpected: - Cardiovascular health Referral Disease Screening 11/13/2021 (preventive cardiology) (Raheel roximate), consult (clinic) Expires: 12/09/2022 [facility] Outpatient Routine Cardiac Vascular Expec linda: office visit (clinic) Referral Disease Sc reening 11/13/2021 Screening Examination (Appro ximate), Diabetes Mellitu s Expires: Screening Examination 2022 For Thyroid Diso rder Hearing Exam Gastroenterology and Outpatient Routine Gastroesophageal Exp ected: Hepatology - GIOD Referral Reflux Disease 11/13/19 22, consult (clinic) Expires: 10/17/2022 documented as of this encounter Results EXERCISE ECG (11/14/2021 2:03 PM MUSIC DIRECTOR) Specimen (Source) Anatomical Collection Method Collection Time Re ceived Time Location / / Volume Laterality 11/14/2021 1:17 PM MUSIC DIRECTOR Narrative [facility] CV MERGE - 11/14/2021 3:10 PM MUSIC DIRECTOR This result has an attachment that is no t available. See PDF For Result Procedure Note Carlos Swenson M.D. - 11/14/2021Forma tting of this note might be different from the original. See PDF For Result Leonora Lucero M.D. CV STRESS PROCEDURES Performing Organization Address City/State/ZIP Code Phon e Number MC CV MERGE MC CV MERGE NA DX Chest AP or PA and Lateral 2 Views (11/13/2021 1:42 PM MUSIC DIRECTOR) Anatomical Region Laterality Modality Chest, Thoracic RST LOS, Thoracic ARZ LOS, Thoracic N/A Digital Radiography FLA LOS Specimen (Source) Anatomical Collection Method Collection Time Re ceived Time Location / / Volume Laterality 11/13/2021 1:47 PM MUSIC DIRECTOR Impressions 11/13/2021 1:47 PM MUSIC DIRECTOR Negative chest. Narrative 11/13/2021 1:47 PM MUSIC DIRECTOR EXAM: ??DX CHEST AP OR PA AND LATERAL 2 VIEWS Procedure Note Mika Purdy M.D. - 11/13/2021Fo rmatting of this note might be different from the original. EXAM: DX CHEST AP OR PA AND LATERAL 2 EWS IMPRESSION: Negative chest. Leonora Lucero M.D. IMG DIAGNOSTIC IMAGING PROCE DURES (ABNORMAL) Urinalysis with Microscopic: Urine, Midstream (11/13/2021 10:22 AM MUSIC DIRECTOR) Patholo gist Method Time Signature Source Urine, Urine, 11/13/2021 DTL Midstream 10:46 AM MUSIC DIRECTOR Color, U Yellow 11/13/2021 DTL 10:46 AM MUSIC DIRECTOR Clarity, U Cloudy (A) 11/13/2021 DTL 10:46 AM MUSIC DIRECTOR Protein, U 6 <26 mg/dL 11/13/2021 DTL 11:57 AM MUSIC DIRECTOR Protein/Osmol 0.26 <0.42 11/13/2021 DTL ality ratio 11:57 AM MUSIC DIRECTOR Predicted 24 200 mg/24 h 11/13/2021 DTL Hr Protein 11:57 AM MUSIC DIRECTOR Predicted 49-809 mg/24 h 11/13/2021 DTL Range 11:57 AM MUSIC DIRECTOR Specimen Anatomical Collection Method Collection Time Receive d Time (Source) Location / / Volume Laterality Urine (Urine, 11/13/2021 10:22 11/13/2021 Midstream) AM MUSIC DIRECTOR 10:46 AM MUSIC DIRECTOR Leonora Lucero M.D. LAB URINE ORDERABLES Performing Organization Address City/State/ZIP Code Phon e Number [facility] - [address] [place], [place] [address] [facility] [place] [address] Laboratories-[facility] [address] Glucose, Fasting (11/13/2021 9:39 AM MUSIC DIRECTOR) P athologist Signature Glucose, P 94 70 - 100 11/13/2021 DTL mg/dL 10:21 AM MUSIC DIRECTOR Last Intake 13 hr 11/13/2021 DTL 10:08 AM MUSIC DIRECTOR Specimen Anatomical Collection Method Collection Time Receive d Time (Source) Location / / Volume Laterality Blood (Blood, 11/13/2021 9:39 AM 11/13/19 Venous) MUSIC DIRECTOR 10:08 AM MUSIC DIRECTOR Leonora Lucero M.D. LAB BLOOD NON ADD-ON Performing Organization Address City/[facility] Phon e Number [facility] - [address] [address] Laboratories[address] Thyroid Function [place] (11/13/2021 9:38 AM MUSIC DIRECTOR) athologist Signature TSH, Sensitive 1.3 0.3 - 4.2 11/13/2021 DT mIU/L 10:36 AM MUSIC DIRECTOR Specimen Anatomical Collection Method Collection Time Receive d Time (Source) Location / / Volume Laterality Blood (Blood, 11/13/2021 9:38 AM 11/13/19 Venous) MUSIC DIRECTOR 10:06 AM MUSIC DIRECTOR Leonora Lucero M.D. LAB BLOOD ADD-ON Performing Organization Address City/[facility] Phon e Number [facility] - [id number] [place] [address] 25-Hydroxyvitamin D2 and D3 (11/13/2021 9:38 AM MUSIC DIRECTOR) athologist Signature 25-Hydroxy D2 <4.0 ng/mL 11/13/2021 SDSC 11:55 PM MUSIC DIRECTOR 25-Hydroxy D3 25 ng/mL 11/13/2021 SDSC 11:55 PM MUSIC DIRECTOR 25-Hydroxy D 25 ng/mL 11/13/2021 SDSC Total 11:55 PM MUSIC DIRECTOR Comment: ----REFERENCE VALUE---- 25-HYDROXY D TOTAL (D2+D3) Optimum level s in the healthy population are 20-50, patients with bone disease may benefit from higher levels within this r rosie. ----ADDITIONAL INFORMATION---- This test was developed and its performa nce characteristics determined by [facility] in a manner consistent with CLIA requirements. This test has not been cleared or approved by the [place] d and Drug Administration. Specimen Anatomical Collection Method Collection Time Receive d Time (Source) Location / / Volume Laterality Blood (Blood, 11/13/2021 9:38 AM 02/16/20 22 Venous) MUSIC DIRECTOR 12:33 PM MUSIC DIRECTOR Leonora Lucero M.D. LAB BLOOD ADD-ON Performing Organization Address City/State/ZIP Code Phon e Number [facility] [address] [place] [address] [facility] [place] [address] Laboratory Medicine and Pathology [address] [place] CBC with Differential, Blood (11/13/2021 9:38 AM MUSIC DIRECTOR) P athologist Signature Hemoglobin 13.0 11.6 - 11/13/2021 DTL 15.0 g/dL 10:09 AM MUSIC DIRECTOR Hematocrit 39.6 35.5 - 11/13/2021 DTL 44.9 % 10:09 AM MUSIC DIRECTOR Erythrocytes 4.38 3.92 - 11/13/2021 DTL 5.13 10:09 AM MUSIC DIRECTOR x10(12)/L MCV 90.4 78.2 - 11/13/2021 DTL 97.9 fL 10:09 AM MUSIC DIRECTOR RBC Distrib Width 13.0 12.2 - 11/13/2021 DTL 16.1 % 10:09 AM MUSIC DIRECTOR Platelet Count 228 157 - 371 11/13/2021 DTL x10(9)/L 10:09 AM MUSIC DIRECTOR Leukocytes 6.6 3.4 - 9.6 11/13/2021 DTL x10(9)/L 10:09 AM MUSIC DIRECTOR Neutrophils 4.57 1.56 - 11/13/2021 DTL 6.45 10:09 AM MUSIC DIRECTOR x10(9)/L Lymphocytes 1.40 0.95 - 11/13/2021 DTL 3.07 10:09 AM MUSIC DIRECTOR x10(9)/L Monocytes 0.45 0.26 - 11/13/2021 DTL 0.81 10:09 AM MUSIC DIRECTOR x10(9)/L Eosinophils 0.12 0.03 - 11/13/2021 DTL 0.48 10:09 AM MUSIC DIRECTOR x10(9)/L Basophils 0.04 0.01 - 11/13/2021 DTL 0.08 10:09 AM MUSIC DIRECTOR x10(9)/L Specimen Anatomical Collection Method Collection Time Receive d Time (Source) Location / / Volume Laterality Blood (Blood, 11/13/2021 9:38 AM 11/13/19 22 9:57 Venous) MUSIC DIRECTOR AM MUSIC DIRECTOR Leonora Lucero M.D. LAB BLOOD ADD-ON Performing Organization Address City/State/ZIP Code Phon e Number [facility] - [address] Creatinine with Estimated GFR (11/13/2021 9:38 AM MUSIC DIRECTOR) athologist Signature Creatinine 0.92 0.59 - 11/13/2021 DTL 1.04 mg/dL 10:36 AM MUSIC DIRECTOR eGFR-Non 78 >=60 11/13/2021 DT Black/ mL/min/BSA 10:36 AM MUSIC DIRECTOR Swedish Comment: ----ADDITIONAL INFORMATION---- Estimated GFR calculated using the 2009 CKD_EPI creatinine equation. eGFR-Black/ 89 >=60 mL/min/BSA 2021 10:36 AM MUSIC DIRECTOR DTL Comment: ----ADDITIONAL INFORMATION---- Estimated GFR calculated using the 2009 CKD_EPI creatinine equation. Specimen Anatomical Collection Method Collection Time Receive d Time (Source) Location / / Volume Laterality Blood (Blood, 11/13/2021 9:38 AM 11/13/19 22 Venous) MUSIC DIRECTOR 10:06 AM MUSIC DIRECTOR Leonora Lucero M.D. LAB BLOOD ADD-ON Performing Organization Address City/State/ZIP Code Phon e Number [facility] - [address] [address] Laboratories-[address] Calcium, Total (11/13/2021 9:38 AM MUSIC DIRECTOR) athologist Signature Calcium, Total, 9.2 8.6 - 10.0 11/13/2021 DTL S mg/dL 10:31 AM MUSIC DIRECTOR Specimen Anatomical Collection Method Collection Time Receive d Time (Source) Location / / Volume Laterality Blood (Blood, 11/13/2021 9:38 AM 11/13/19 22 Venous) MUSIC DIRECTOR 10:08 AM MUSIC DIRECTOR Leonora Lucero M.D. LAB BLOOD ADD-ON Performing Organization Address City/State/ZIP Code Phon e Number [facility] - [address] [place], [place] [address] [place] [address], [place] [address] [facility] [address] Albumin (11/13/2021 9:38 AM MUSIC DIRECTOR) P athologist Signature Albumin, S 4.5 3.5 - 5.0 11/13/2021 DTL g/dL 10:31 AM MUSIC DIRECTOR Specimen Anatomical Collection Method Collection Time Receive d Time (Source) Location / / Volume Laterality Blood (Blood, 11/13/2021 9:38 AM 11/13/19 Venous) MUSIC DIRECTOR 10:08 AM MUSIC DIRECTOR Leonora Lucero M.D. LAB BLOOD ADD-ON Performing Organization Address City/[facility]/ZIP Code Phon e Number [facility] - [address] [place], [place] [address] [place] [phone] [facility] [address] ALT (Alanine Aminotransferase) (11/13/2021 9:38 AM MUSIC DIRECTOR) Patholo gist Method Time Signature Alanine 20 7 - 45 11/13/2021 DTL Aminotransferase U/L 10:31 AM MUSIC DIRECTOR (ALT), S Specimen Anatomical Collection Method Collection Time Receive d Time (Source) Location / / Volume Laterality Blood (Blood, 11/13/2021 9:38 AM 11/13/19 22 Venous) MUSIC DIRECTOR 10:08 AM MUSIC DIRECTOR Leonora Lucero M.D. LAB BLOOD ADD-ON Performing Organization Address City/State/ZIP Code Phon e Number [facility] - [address] [place], [place] [address] [place] [address] [facility] [address] Alkaline Phosphatase (11/13/2021 9:38 AM MUSIC DIRECTOR) P athologist Signature Alkaline 70 35 - 104 11/13/2021 DTL Phosphatase, S U/L 10:31 AM MUSIC DIRECTOR Specimen Anatomical Collection Method Collection Time Receive d Time (Source) Location / / Volume Laterality Blood (Blood, 11/13/2021 9:38 AM 11/13/19 22 Venous) MUSIC DIRECTOR 10:08 AM MUSIC DIRECTOR Leonora Lucero M.D. LAB BLOOD ADD-ON Performing Organization Address City/State/ZIP Code Phon e Number [facility] - [address] [place], [place] [address] [place] [address] [facility] [address] [facility] Sodium (11/13/2021 9:38 AM MUSIC DIRECTOR) athologist Signature Sodium, S 138 135 - 145 11/13/2021 DTL mmol/L 10:36 AM MUSIC DIRECTOR Specimen Anatomical Collection Method Collection Time Receive d Time (Source) Location / / Volume Laterality Blood (Blood, 11/13/2021 9:38 AM 11/13/19 22 Venous) MUSIC DIRECTOR 10:06 AM MUSIC DIRECTOR Leonora Lucero M.D. LAB BLOOD ADD-ON Performing Organization Address City/State/ZIP Code Phon e Number [facility] - [address] [place], [place] [address] [place] [address] [facility] [address] [facility] Potassium (11/13/2021 9:38 AM MUSIC DIRECTOR) athologist [facility] Potassium, S 4.4 3.6 - 5.2 11/13/2021 DTL mmol/L 10:36 AM MUSIC DIRECTOR Specimen Anatomical Collection Method Collection Time Receive d Time (Source) Location / / Volume Laterality Blood (Blood, 11/13/2021 9:38 AM 11/13/19 22 Venous) MUSIC DIRECTOR 10:06 AM MUSIC DIRECTOR Leonora Lucero M.D. LAB BLOOD ADD-ON Performing Organization Address City/State/[facility] Code Phon e Number [facility] - [address] [place], [place] [address] [place] [address] [facility] [address] [facility] (ABNORMAL) Lipid Panel (11/13/2021 9:38 AM MUSIC DIRECTOR) athologist Signature Cholesterol, 191 mg/dL 11/13/2021 DTL Total 10:36 AM MUSIC DIRECTOR Comment: ----REFERENCE VALUE---- Desirable: < 200 Borderline high: 200 - 239 High: > or = 240 Triglycerides 165 (H) mg/dL 11/13/2021 10:36 AM MUSIC DIRECTOR DT L Comment: ----REFERENCE VALUE---- Normal: <150 Borderline high: 150-199 High: 200-499 Very high: > or =500 Cholesterol, HDL, S 56 >=50 mg/dL 11/13/2021 10:36 AM MUSIC DIRECTOR DTL Calculated LDL 102 mg/dL 11/13/2021 10:36 AM MUSIC DIRECTOR D TL Comment: ----REFERENCE VALUE---- Desirable: <100 mg/dL Above Desirable: 100-129 mg/dL Borderline High: 130-159 mg/dL High: 160-189 mg/dL Very High: >=190 mg/dL Cholesterol, Non-HDL, Calculated 135 mg/dL 022 10:36 AM MUSIC DIRECTOR DTL Comment: ----REFERENCE VALUE---- Desirable: <130 Above Desirable: 130-159 Borderline high: 160-189 High: 190-219 Very high: > or =220 Specimen Anatomical Collection Method Collection Time Receive d Time (Source) Location / / Volume Laterality Blood (Blood, 11/13/2021 9:38 AM 11/13/19 22 Venous) MUSIC DIRECTOR 10:06 AM MUSIC DIRECTOR Leonora Lucero M.D. LAB BLOOD ADD-ON Performing Organization Address City/State/[facility] Code Phon e Number [facility] - [address] [place] [address] [facility] [place] [address] [facility] 200 [facility] ECG 12 Lead (11/13/2021 8:50 AM MUSIC DIRECTOR) P athologist Signature Ventricular Rate 74 BPM MUSE ECG/Min [place] Interval 168 ms MUSE QRSD Interval 92 ms MUSE QT Interval 382 ms MUSE QTC Interval 424 ms MUSE P [place] 56 degrees MUSE R [place] 30 degrees MUSE T Wave [place]ett 23 degrees MUSE Specimen Anatomical Collection Method Collection Time Receive d Time (Source) Location / / Volume Laterality 11/13/2021 8:50 AM 2 8:55 MUSIC DIRECTOR AM MUSIC DIRECTOR Impressions MUSE - 11/13/2021 8:55 AM MUSIC DIRECTOR Normal sinus rhythm Normal ECG No previous ECGs available Reviewed by AAKASH Betts Narrative This result has an attachment that is no t available. Procedure Note Luis Alfredo Tanner M.D., Ph.D. - 2 IMPRESSION: Normal sinus rhythm Normal ECG No previous ECGs available Reviewed by AAKASH Betts Leonora Lucero M.D. ECG ORDERABLES Performing Organization Address City/State/ZIP Code Phon e Number MUSE MUSE NA documented in this encounter Visit Diagnoses Diagnosis Gastroesophageal Reflux Disease - Primar y Cardiac Vascular Disease Screening Screening Examination Diabetes Mellitus Screening Examination For Thyroid Disord er Hearing Exam Cardiac Vascular Disease Screening Cardiac Vascular Disease Screening documented in this encounter
--- OUTSIDE RECORDS SUMMARY | 2022-07-05 21:35 | XMS_ITS | Encounter Summary ---
:1980 Author Organization [facility] Address [address] [place] [address] Care Team Providers Name Role Phone Unavailable Primary Care Provider Unavailable Reason for Referral Outpatient (Routine) - Closed Specialty Diagnoses / Procedures Referred By Contact Refer red To Contact Integrative Medicine Diagnoses Leonora Toribio M.D. [facility] [address] [place] [address] Referral ID Status Reason Start Date Expiration Date Visits Requ ested Visits Authorized [id number] Closed 11/13/2021 11/13/2022 1 1 utpatient (Routine) - Authorized Specialty Diagnoses / Procedures Referred By Contact Refer red To Contact Neurology Diagnoses Leonora Russell M.D. [facility] [address] [place], [place] [phone] Referral ID Status Reason Start Date Expiration Date Visits V isits Requested Authorized [id number] Authorized 11/13/2021 11/13/2022 1 1 utpatient (Routine) - Closed Specialty Diagnoses / Procedures Referred By Contact Refer red To Contact Diagnoses Leonora Russell M.D. [facility] Procedures Autonomic reflex Screen 200 [place], [place] [phone] Referral ID Status Reason Start Date Expiration Date Visits Requ ested Visits Authorized [id number] Closed 11/13/2021 11/13/2022 1 1 utpatient (Routine) - Authorized Specialty Diagnoses / Procedures Referred By Contact Refer red To Contact Diagnoses Anhidrosis Leonora Lucero M.D. [facility] Procedures Thermoregulatory sweat test [address] [place], [place] [phone] Referral ID Status Reason Start Date Expiration Date Visits V isits Requested Authorized [id number] Authorized 11/13/2021 11/13/2022 1 1 utpatient (Routine) - Closed Specialty Diagnoses / Procedures Referred By Contact Refer red To Contact Diagnoses Screening Mammogram Breast Cancer Leonora Lucero M.D. [facility] Procedures BI Breast Screening Bilateral with Tomosynthesis [address] [place], [place] [phone] Referral ID Status Reason Start Date Expiration Date Visits Requ ested Visits Authorized [id number] Closed 11/13/2021 11/13/2022 1 1 utpatient (Routine) - Closed Specialty Diagnoses / Procedures Referred By Contact Refer red To Contact Preventive Medicine Diagnoses Pap Smear Examination Leonora Lucero M.D. [facility] [address] [place] [address] Referral ID Status Reason Start Date Expiration Date Visits Requ ested Visits Authorized [id number] Closed 11/13/2021 11/13/2022 1 1 utpatient (Routine) - Closed Specialty Diagnoses / Procedures Referred By Contact Refer red To Contact Dermatology Diagnoses Rosacea Leonora Lucero M.D. [facility] [address] [place] [phone] Referral ID Status Reason Start Date Expiration Date Visits V isits Requested Authorized [id number] Closed Specialty 11/13/2021 11/13/2022 1 1 Services Required utpatient (Routine) - Authorized Specialty Diagnoses / Procedures Referred By Contact Refer red To Contact Otorhinolaryngology Diagnoses Otitis Media Recurrent Left Leonora Lucero M.D. [facility] [address] [place] [address] Referral ID Status Reason Start Expiration Visits Visits Date Date Requested Authorized [id number] Authorized Specialty 11/13/2021 11/13/2022 1 1 Services Required utpatient (Routine) - Closed Specialty Diagnoses / Procedures Referred By Contact Refer red To Contact Diagnoses Pain Low Back Unspecified Leonora Lucero M.D. [facility] Procedures DX Sacroiliac Joints 3+ Views [address] [place] [phone] Referral ID Status Reason Start Date Expiration Date Visits Requ ested Visits Authorized [id number] Closed 11/13/2021 11/13/2022 1 1 utpatient (Routine) - Closed Specialty Diagnoses / Procedures Referred By Contact Refer red To Contact Diagnoses Pain Low Back Unspecified Leonora Lucero M.D. [facility] Procedures DX Lumbar Spine 2-[address] [place] [phone] Referral ID Status Reason Start Date Expiration Date Visits Requ ested Visits Authorized [id number] Closed 11/13/2021 11/13/2022 1 1 utpatient (Routine) - Closed Specialty Diagnoses / Procedures Referred By Contact Refer red To Contact Physical Medicine and Diagnoses Pain Low Back Unspecified Leonora Lucero [facility] M.D. [address] [place] [phone] Referral ID Status Reason Start Date Expiration Date Visits Requ ested Visits Authorized [id number] Closed 11/13/2021 11/13/2022 1 1 OW ASSISTANT Reason for Visit Appointment Request (Routine) - Closed Specialty Diagnoses / Procedures Referred By Contact Refer red To Contact Executive Medicine Diagnoses Executive Exam Referral ID Status Reason Start Date Expiration Date Visits Requ ested Visits Authorized [id number] Closed 08/26/2021 08/26/2022 2 1 Encounter Details Date Type Department Care Team Description 11/13/2021 Comprehensive Visit Section of Leonora Ozuna Cardiac Vascular Disease Screening (Primary Dx); and Joaquin Martinez M.D. Gastroesophageal Reflux Disease; Medicine in 200 Otitis Media Re current Left; [facility] Hypertriglyceridemia; 200 [facility], Fatigue; [facility] Rosacea; [phone] Raynaud's Disease; [phone] Pain Low Back U nspecified; (Work) Anhidrosis; [phone] Stress; (Fax) Screening Mammo gram Breast Cancer; Pap Smear [place]; Maintenance [facility] Adult Social History Tobacco Use Types Packs/Day Years [...] How often do you attend judaism or spiritism 1 to 4 times per year 11/09/2021 [...] at Date Recorded Female 11/09/2021 9:31 AM ESCROW ASSISTANT documented as of this encounter Last Filed Vital Signs Vital Sign Reading Time Taken Comments Blood Pressure 115/76 11/13/2021 1:53 PM ESCROW ASSISTANT Pulse 83 11/13/2021 1:53 PM ESCROW ASSISTANT Temperature 36.6 ??C (97.9 ??F) 11/13/2021 1:53 PM ESCROW ASSISTANT Respiratory Rate - - Oxygen Saturation - - Inhaled Oxygen Concentration - - Weight 107 kg (236 lb 14.2 oz) 11/13/2021 1:53 PM ESCROW ASSISTANT Height 171 cm (5' 7.32) 11/13/2021 1:53 PM ESCROW ASSISTANT Body Mass Index 36.75 11/13/2021 1:53 PM ESCROW ASSISTANT documented in this encounter H&P Notes Leonora Lucero M.D. - 11/13/2021 2:30 PM CST SUBJECTIVE REFERRAL: Self CHIEF COMPLAINT / REASON FOR VISIT Executive physical HISTORY OF PRESENT ILLNESS Misti Rojas is a very pleasant 41 y.o. female who presents today to the Executive Health Program at [facility] for a multisystem evaluation. This is the patient's 1st visit to the executive Health program. She lives with her family in [place], [place] which is close to [place]. She has 2 sons, 18 and 15-year-old. She reports that the last 2 years have been very stressful due to changes related to the pandemic. Her younger son had struggled with some mental health issues but is now doing better. She also reports having gained about 15 lb over the past year. She also states that she has always struggled with weight most of her adult life. She feels more comfortable around 200 lb, she is currently weighing about 235 lb. Her main concern for today's visit is acid reflux that has been ongoing for the past 3 years but seems to have worsened over the past year. She started taking omeprazole and is currently on her 2nd 14 day pack and has noticed significant improvement in her symptoms. She is concerned about taking the medication long- term. She does not have any difficulty swallowing. She denies any abdominal pain, nausea vomiting. She also reports history of recurrent left ear infections, the last 1 was about 2 months ago for which she was on oral antibiotic-ciprofloxacin. She was also diagnosed with rosacea, used metronidazole gel which she reports is too strong and irritates her skin. The redness is usually worse when she feels hot or drinks wine. She is looking forward to discuss other management options. She also has been dealing with pain in her lower back, around the sacrum and bilateral hip joints. But she states this has also improved since she has made modifications to her lifestyle and uses a standing desk. Her other main concern is fatigue that has also been ongoing for the past couple of years. She has difficulty with heat tolerance, she reports that she does not sweat and she cannot be outside when thetemperature is over 80??. She has not had any episodes of syncope. She does feel dizzy when standingfor prolonged periods of time. She also reports a history of PCOS and multiple miscarriages when she was in her 20s. She was diagnosed with Raynaud's disease and was advised lifestyle modifications which do seem to help. She also reports that her family in general have started eating healthier and she is also trying to be more active. The following portions of the patient's history were reviewed and updated as appropriate: allergies,current medications, family history, medical history, social history, surgical history and problem list. REVIEW OF SYSTEMS Constitutional: Positive for fatigue. Gastrointestinal: Positive for heartburn. Musculoskeletal: Positive for back pain. The following systems were negative: Skin, Eyes, ENT, CV, Respiratory, , Hematologic, Neuro, Psych SOCIAL HISTORY Social History Socioeconomic History ??? Marital status: Spouse name: Not on file ??? Number of children: Not on file ??? Years of education: Not on file ??? Highest education level: Bachelor's degree (e.g., BA, AB, BS) Occupational History ??? Not on file Tobacco Use ??? Smoking status: Never Smoker ??? Smokeless tobacco: Never Used Substance and Sexual Activity ??? Alcohol use: Yes Alcohol/week: 10.0 standard drinks Types: 10 Glasses of wine per week Comment: 1-2 glasses of wine most nights ??? Drug use: Never ??? Sexual activity: Yes Partners: Male control/protection: Vasectomy Comment: has had vasectomy Other Topics Concern ??? Not on file Social History Narrative ??? Not on file FAMILY HISTORY No family history on file. OBJECTIVE VITAL SIGNS PHYSICAL EXAMINATION General: Healthy well-appearing female in no acute distress. Eyes: PERRL, EOMI ENT: External auditory canal is normal. Tympanic membranes visualized with normal landmarks. Neck: Supple. No carotid bruits. No thyroid abnormalities noted. Lymph: No palpable cervical or supraclavicular lymphadenopathy. Heart: Regular rate and rhythm. No murmurs appreciated. Extremities warm and well-perfused. No edema. Lungs: Clear to auscultation bilaterally. No increased work of breathing. No crackles or wheezing appreciated. Breast exam: Breast appear to be symmetric. Skin overlying the breast appears normal without lesions/irritation, dimpling/puckering. Nipples are everted. Palpation of the breast revealed soft fibroglandular texture without dominant masses. No expressible nipple discharge. Abdomen: Soft, nontender, nondistended. No pain with palpation. Normal bowel sounds. Skin: No rashes or lesions noted. Musculoskeletal: Normal active ROM of joints. 5/5 strength in all extremities. Neuro: Alert and oriented x 3. No focal neuro deficits. Reflexes 2+ in UE and LE. Gait: Examined and normal. Psych: Pleasant, normal affect. DIAGNOSTICS LABS/IMAGING: Appointment on 11/13/2021 Component Date Value ??? [...] Eosinophils 11/13/2021 0.12 ??? Basophils 11/13/2021 0.04 ??? TSH, Sensitive, S 11/13/2021 1.3 Appointment [...] 11/13/2021 Negative ??? Glucose, U 11/13/2021 Negative 12 LEAD ECG IMPRESSION: Normal sinus rhythm Normal ECG Reviewed the above results with the patient. ASSESSMENT / PLAN #1 Gastroesophageal Reflux Disease Currently doing well on omeprazole. No concerning symptoms to warrant an EGD now. She is also scheduled to be evaluated in Gastroenterology Clinic. Will plan to follow-up on the recommendations. #2 Otitis Media Recurrent Left Recommended ENT evaluation. #3 Hypertriglyceridemia #4 Cardiac Vascular Disease Screening #5 BMI 36.75 kg/m2 #6 Family history of premature coronary artery disease We reviewed her lipid panel today which reveals an elevated triglyceride level of 165 mg/dL. We discussed cutting down on alcohol and carbohydrates can help lower the triglyceride levels. We also discussed her current BMI which is consistent with stage II obesity and the initial goal of weight loss with an aim to lower the BMI to less than 30 kilogram/meter sq. We discussed the Mediterranean style diet-incorporating at least 5 servings of vegetables and/or fruits, cutting down on red meats, incorporating whole grains, nuts/seeds, using olive oil for cooking. We also discussed moderate intensity exercise with a goal of at least 150 minutes per week and additional 10-15 minutes strength training at least twice a week. Ten year ASCVD risk was noted to be 0.4% with an optimal of 0.4%. This is low risk. Fasting blood glucose is normal. She is scheduled for a stress test tomorrow and will also plan to see the fisher to discuss recommendations. #7 Fatigue #8 Elevated TONI #9 Raynaud's Disease #10 Family history of autoimmune conditions She patient reports family history of Yudelka's thyroiditis and lupus in her mother. Her outside medical records revealed an elevated TONI, she reports having seen a bloom conveyor operator last year and additional testing was unremarkable. We will plan to obtain the outside medical records. Will plan to obtain a connective tissue disorder panel, inflammation markers- CRP, anticentromere antibody due to history of Raynaud's disease. Due to the fatigue will also plan to obtain an overnight oximetry for evaluation of possible obstructive sleep apnea. Will plan to follow-up on the results and provide further recommendations. #11 Rosacea Did not tolerate topical metronidazole. Will plan to refer her to Dermatology to discuss management options. #12 Pain Low Back Unspecified Likely muscular. Requested a PMR evaluation will also plan to obtain x-ray of her lumbar spine and sacroiliac joints. #13 Anhidrosis #14 Heat intolerance Will plan to evaluate for possible autonomic neuropathy. Autonomic reflex screen and thermoregulatory sweat test have been requested. #15 Stress Will plan to refer her to the integrative medicine clinic for stress management and resilience training. HEALTH MAINTENANCE: - Hypertension screening: Negative - Diabetes mellitus screening: fasting blood glucose 94 mg/dL - Alcohol misuse screening: recommended cutting down on alcohol intake, especially with elevated triglyceride levels. Not more than 7 standard drinks per week, but advised the patient to limit as much as possible - Tobacco misuse screening: Negative - Drug illicit screening: Negative - Depression screening: Negative - Obesity screening: BMI 36.75 kilogram/meter sq - Skin cancer prevention- appropriate use of sunscreen discussed - Vaccination: Tdap: 09/28/2015, repeat booster in 10 years Shingrix: Recommended at age 50 PCV-13: Recommended at age 65 PPSV-23: Recommended at age 65 Influenza: Patient reports having received the influenza vaccine She has received 3 doses of the COVID-19 vaccine - Colon Cancer Screening: recommended initiating colon cancer screening at age 65 - Breast cancer screening: Never had a mammogram before. Requested her 1st mammogram to be completedhere - Cervical cancer screening: Patient reports last Pap smear in 2017, due now. Requested Pap test PATIENT EDUCATION: Ready to learn, no apparent learning barriers were identified; learning preferences include listening. Explained diagnosis and treatment plan; patient expressed understanding of the content. OW ASSISTANT documented in this encounter Plan of Treatment Scheduled Orders Name Type Priority Associated Diagnoses Order S chedule Audiology evaluation Audiology Routine Otitis Media Left Ex pected: 11/13/2021 (Approximate), Expires: 02/10/2023 Thermoregulatory sweat test Neurology Routine Anhidrosis Expected: 11/13/2021 (Approximate), Expires: 11/13/2022 Scheduled Referrals Name Type Priority Associated Order Schedule Diagnoses Physical Medicine and Outpatient Routine Pain Low Back Expec linda: Rehabilitation - General Referral Unspecified consult (clinic) (Approximat e), Expires: 02/10/2023 Otorhinolaryngology - Outpatient Routine Otitis Media Left E xpected: General non-surgical Referral 022 consult (clinic) (Approximat e), Expires: 02/10/2023 Dermatology - General Outpatient Routine Rosacea Expect ed: consult (clinic) Referral 11/13/2021 (Approximate), Expires: 02/10/2023 Preventive Medicine - Outpatient Routine Pap Smear Expect ed: Preventive services Referral Examination 11/13/19 22 consult (clinic) (Approximat e), Expires: 02/10/2023 Neurology - Autonomic Outpatient Routine Anhidrosis Expect ed: disorders consult (clinic) Referral 0 11/13/2021 (Approximate), Expires: 02/10/2023 Integrative Medicine - Outpatient Routine Stress Expec linda: Stress management consult Referral (clinic) (Approximate), Expires: 02/10/2023 documented as of this encounter Results Autonomic reflex Screen (11/15/2021 1:30 PM ESCROW ASSISTANT) Specimen (Source) Anatomical Collection Method Collection Time Re ceived Time Location / / Volume Laterality 11/15/2021 12:45 PM ESCROW ASSISTANT Narrative [facility] - 11/15/2021 2:02 PM ESCROW ASSISTANT FINAL ? REPORT ? AUTONOMIC REFLEX SCREEN ? [phone] ? A ge: 41 ?Location: [facility] ? Lab #: [id number] Misti Rojas ? Sex : F ? Order ID: [id number] ? Date: 11/15/2021 : 1980 Autonomic Turn Down Attendant: Jhonatan Granados ([id number]) ?CONCLUSION Abnormal study. 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 These findings can be seen in very mild limited cholinergic neuropa deondre. ?QUANTITATIVE AXON REFLEX SWEAT TEST (QSWEAT) ?Test [...] to the Valsalva maneuver were normal. (B) [id number] blood pressure response s to the Valsalva [...] Address City/State/ZIP Code Phon e Number [facility] BI Breast Screening Bilateral with Tomosynthesis (11/14/2021 2:35 PM ESCROW ASSISTANT) Anatomical Region Laterality Modality Breast, Breast Imaging RST LOS, Breast Imaging ARZ LOS, [address] Bilateral Mammography Imaging FLA LOS Specimen (Source) Anatomical Collection Method Collection Time Re ceived Time Location / / Volume Laterality 11/15/2021 7:57 AM ESCROW ASSISTANT Impressions 11/15/2021 9:22 AM ESCROW ASSISTANT Negative. RECOMMENDATION: ??Annual Screening Mammo gram ASSESSMENT: ??BI-RADS: 1: Negative. Narrative 11/15/2021 9:22 AM ESCROW ASSISTANT EXAM: ??BI BREAST SCREENING BILATERAL WITH TOMOSYNTHESIS Current study was evaluated with a QuVISu ter Aided Detection (CAD) system. INDICATION: ??Screening mammogram. [...] TOMOSYNTHESIS Current study was evaluated with a Compu ter Aided Detection (CAD) system. INDICATION: Screening mammogram. COMPARISON: None, this is a baseline scr eening exam. DENSITY: c. The breast(s) are heterogene ously dense, which may obscure small masses. FINDINGS: No mammographic findings of ma lignancy. IMPRESSION: Negative. RECOMMENDATION: Annual Screening Mammogr am ASSESSMENT: BI-RADS: 1: Negative. Leonora BRICENO BI PROCEDURES DX Sacroiliac Joints 3+ Views (11/13/2021 4:48 PM ESCROW ASSISTANT) Anatomical Region Laterality Modality Sacral Spine, Musculoskeletal RST LOS, Musculoskeletal N/A Digital Radiography ARZ LOS, Muskuloskeletal FLA LOS Specimen (Source) Anatomical Collection Method Collection Time Re ceived Time Location / / Volume Laterality 11/13/2021 4:51 PM ESCROW ASSISTANT Impressions 11/13/2021 4:52 PM ESCROW ASSISTANT Convex right lumbar curve. Minimal lower lumbar facet arthropathy. Mild degenerative arthritis both sacroiliac joints. Narrative 11/13/2021 4:52 PM ESCROW ASSISTANT EXAM: ??DX LUMBAR SPINE 2-3 VIEWS, DX SACROILIAC JOINTS 3+ VIEWS Procedure Note Higinio Aguilar M.D. - 11/13/2021Format ting of this note might be different from the original. EXAM: DX LUMBAR SPINE 2-3 VIEWS, DX SACR OILIAC JOINTS 3+ VIEWS IMPRESSION: Convex right lumbar curve. Minimal lower lumbar facet arthropathy. Mild degenerative arthritis both sacroiliac joints. Leonora BRICENO DIAGNOSTIC IMAGING PROCE DURES DX Lumbar Spine 2-3 Views (11/13/2021 4:48 PM ESCROW ASSISTANT) Anatomical Region Laterality Modality Lumbar Spine, Musculoskeletal RST LOS, Neuroradiology N/A Digital Radiography ARZ LOS, Muskuloskeletal FLA LOS Specimen (Source) Anatomical Collection Method Collection Time Re ceived Time Location / / Volume Laterality 11/13/2021 4:51 PM ESCROW ASSISTANT Impressions 11/13/2021 4:52 PM ESCROW ASSISTANT Convex right lumbar curve. Minimal lower lumbar facet arthropathy. Mild degenerative arthritis both sacroiliac joints. Narrative 11/13/2021 4:52 PM ESCROW ASSISTANT EXAM: ??DX LUMBAR SPINE 2-3 VIEWS, DX SACROILIAC JOINTS 3+ VIEWS Procedure Note Higinio Aguilar M.D. - 11/13/2021Format ting of this note might be different from the original. EXAM: DX LUMBAR SPINE 2-3 VIEWS, DX SACR OILIAC JOINTS 3+ VIEWS IMPRESSION: Convex right lumbar curve. Minimal lower lumbar facet arthropathy. Mild degenerative arthritis both sacroiliac joints. Leonora Lucero M.D. IMG DIAGNOSTIC IMAGING PROCE DURES Centromere Antibodies, IgG (11/13/2021 3:25 PM ESCROW ASSISTANT) athologist Signature Centromere Ab, <0.2 <1.0 11/14/2021 [facility] IgG, S (Negative) 9:02 AM ESCROW ASSISTANT U Specimen Anatomical Collection Method Collection Time Receive d Time (Source) Location / / Volume Laterality Blood (Blood, 11/13/2021 3:25 PM 11/14/19 22 7:39 Venous) ESCROW ASSISTANT AM ESCROW ASSISTANT Leonora Lucero M.D. LAB BLOOD ADD-ON Performing Organization Address City/[facility]/ZIP Code Phon e Number [facility] [address] [place], [place] [address] [facility] [place] [address] Laboratory Medicine and Pathology [address] [place] Folate (11/13/2021 9:33 AM ESCROW ASSISTANT) athologist Signature Folate, S 14.1 >=4.0 mcg/L 11/14/2021 7:38 DTL AM ESCROW ASSISTANT Specimen Anatomical Collection Method Collection Time Receive d Time (Source) Location / / Volume Laterality Blood (Blood, 11/13/2021 9:33 AM 11/13/19 22 1:49 Venous) ESCROW ASSISTANT PM ESCROW ASSISTANT Leonora Lucero M.D. LAB BLOOD ADD-ON Performing Organization Address City/[facility]/ZIP Code Phon e Number [facility] - [address] [place], [place] [address] [place] [address] Laboratories-[facility] [address] Vitamin B12 Assay (11/13/2021 9:33 AM ESCROW ASSISTANT) athologist Signature Vitamin B12 223 180 - 914 11/14/2021 DT Assay, S ng/L 7:38 AM ESCROW ASSISTANT Comment: ----ADDITIONAL INFORMATION---- In patients being evaluated for vitamin B12 deficiency who have intrinsic factor blocking antibodie s (IFBA), false elevations of B12 may occur due to IFBA interference thus potentially obscuring a physiological de ficiency of B12. If observed B12 concentrations are disco rdant with clinical presentation, measurement of methylmalon ic acid (MMA) should be considered. Specimen Anatomical Collection Method Collection Time Receive d Time (Source) Location / / Volume Laterality Blood (Blood, 11/13/2021 9:33 AM 11/13/19 1:49 Venous) ESCROW ASSISTANT PM ESCROW ASSISTANT Leonora Lucero M.D. LAB BLOOD ADD-ON Performing Organization Address [facility] Phon e Number [facility] - [address] (ABNORMAL) CRP (C-Reactive Protein) (11/13/2021 9:33 AM ESCROW ASSISTANT) athologist [facility] C-Reactive 10.8 (H) <=8.0 mg/L 11/13/2021 [facility] Protein (CRP), 2:51 PM ESCROW ASSISTANT S Specimen Anatomical Collection Method Collection Time Receive d Time (Source) Location / / Volume Laterality Blood (Blood, 11/13/2021 9:33 AM 11/13/19 1:49 Venous) ESCROW ASSISTANT PM ESCROW ASSISTANT Leonora Lucero M.D. LAB BLOOD ADD-ON Performing Organization Address City/[facility] [facility] Phon e Number [facility] - [address] Connective Tissue Diseases Page (11/13/2021 9:33 AM ESCROW ASSISTANT) athologist Signature Antinuclear Ab, 0.4 <=1.0 11/14/2021 [facility] S (Negative) 11:39 AM ESCROW ASSISTANT U Comment: ----ADDITIONAL INFORMATION---- Method: Enzyme-linked immunoassay using HEp-2 nuclear extract supplemented with purified antig ens. Cyclic Citrullinated <15.6 <20.0 (Negative) U 11/14/2021 10:33 AM [facility] Peptide Ab, S ESCROW ASSISTANT Interpretation SEE COMMENT 11/14/2021 11:39 AM SDS C ESCROW ASSISTANT Comment: Tests for antibodies to dsDNA and SHERIF an tigens are not performed automatically unless the TONI r esult is > or = 3.0 U. ??Studies performed at [facility] indicate that positive TONI results <3.0 U are rarely a ccompanied by positive second order tests. Specimen Anatomical Collection Method Collection Time Receive d Time (Source) Location / / Volume Laterality Blood (Blood, 11/13/2021 9:33 AM 11/14/19 7:10 Venous) ESCROW ASSISTANT AM ESCROW ASSISTANT Leonora Lucero M.D. LAB BLOOD ADD-ON Performing Organization Address City/[facility]/ZIP Code Phon e Number [facility] [address] [place], [place] [address] [facility] [place] [address] Laboratory Medicine and Pathology [address] [place] CK (Creatine Kinase) (11/13/2021 9:33 AM ESCROW ASSISTANT) athologist Signature Creatine Kinase 74 26 - 192 11/13/2021 D[facility] (CK), S U/L 2:51 PM ESCROW ASSISTANT Specimen Anatomical Collection Method Collection Time Receive d Time (Source) Location / / Volume Laterality Blood (Blood, 11/13/2021 9:33 AM 11/13/19 22 1:49 Venous) ESCROW ASSISTANT PM ESCROW ASSISTANT Leonora Lucero M.D. LAB BLOOD ADD-ON Performing Organization Address City/[facility]/ZIP [facility] Phon e Number [facility] - [address] [place], [place] [address] [facility] [place] [address] Laboratories-[facility] [address] Ferritin (11/13/2021 9:33 AM ESCROW ASSISTANT) athologist Signature Ferritin, S 15 11 - 307 11/13/2021 [facility] mcg/L 3:31 PM ESCROW ASSISTANT Specimen Anatomical Collection Method Collection Time Receive d Time (Source) Location / / Volume Laterality Blood (Blood, 11/13/2021 9:33 AM 11/13/19 1:49 Venous) ESCROW ASSISTANT PM ESCROW ASSISTANT Leonora Lucero M.D. LAB BLOOD ADD-ON Performing Organization Address City/[facility]/ZIP Code Phon e Number [facility] - [address] [address] [address] Cortisol (11/13/2021 9:33 AM ESCROW ASSISTANT) P athologist Signature Cortisol AM 8.8 7 - 25 11/13/2021 [facility] Result mcg/dL 5:51 PM ESCROW ASSISTANT Specimen Anatomical Collection Method Collection Time Receive d Time (Source) Location / / Volume Laterality Blood (Blood, 11/13/2021 9:33 AM 11/13/19 1:49 Venous) ESCROW ASSISTANT PM ESCROW ASSISTANT Leonora Lucero M.D. LAB BLOOD ADD-ON Performing Organization Address City/[facility]/[facility] Code Phon e Number [facility] - [id number] [place] [address] documented in this encounter Visit Diagnoses Diagnosis Cardiac Vascular Disease Screening - Kelly dia Gastroesophageal Reflux Disease Otitis Media Recurrent Left Hypertriglyceridemia Fatigue Rosacea Raynaud's Disease Pain Low Back Unspecified Anhidrosis Stress Screening Mammogram Breast Cancer Pap Smear Examination Maintenance Health Adult Pain Low Back Unspecified Screening Mammogram Breast Cancer Anhidrosis documented in this encounter
--- OUTSIDE RECORDS SUMMARY | 2022-07-05 21:35 | XMS_ITS | Encounter Summary ---
:[address] [facility] Address [address] [place] [address] Care Team Providers Name Role Phone Unavailable Primary Care Provider Unavailable Reason for Visit Outpatient (Routine) - Closed Specialty Diagnoses / Procedures Referred By Contact Refer red To Contact Dermatology Diagnoses Leonora Choi M.D. [facility] [address] [place] [phone] Referral ID Status Reason Start Date Expiration Date Visits V isits Requested Authorized [id number] Closed Specialty 11/13/2021 11/13/2022 1 1 Services Required Encounter Details Date Type Department Care Team Description 11/14/2021 Comprehensive Visit Department of Linda Alvarado (Primary Dermatology in A, TOBY, C.N.P., Dx) [place] D.N.[address] [place] [phone] Social History Tobacco Use Types Packs/Day Years [...] or relatives? How often do you attend mosque or muslim 1 to 4 times per year 11/09/2021 services? Do you belong to any clubs or organizations Yes 11/09/2021 such as mosque groups, unions, fraternal or athletic groups, or [...] place to sleep or slept in a residential (including now)? Education Answer Date Recorded What is the highest level of school Bachelor's degree (e.g., BA, AB, 11/09/2021 you have completed or the highest BS) degree you have received? Sex Assigned at Date Recorded Female 11/09/2021 9:31 AM CUB REPORTER documented as of this encounter Consult Notes Linda Alvarado APRN, C.N.P., M.S.N. - 11/14/2021 8:00 AM CST REFERRED BY Leonora Lucero M.D. CHIEF COMPLAINT/REASON FOR VISIT Rosacea Patient seen and discussed with supervising oracle wms consultant, Dr. April Underwood, who evaluated the patient and concurs with the assessment and plan. HISTORY OF PRESENT ILLNESS Ms. Misti Rojas is a pleasant 41 y.o. female who presents today for evaluation of rosacea. Ms. Rojas has noticed a 2 year history of redness involving the bilateral cheeks. She denies bumps or papules involving the face. The redness is quite bothersome to her. She appreciates the redness over the cheeks and nose. This does become worse with certain foods, wine, and when she becomes overheated. She has tried prosacea gel (sulphur 10%) and mirvaso gel (brimonidine) without significant benefit. She notes the mirvaso gel works quite well in the moment, but she will suffer rebound redness that isworse than the initial redness. Her mother has a history of lupus. The patient was recently seen by her primary care provider who islooking into a potential autoimmune disease. She has ordered a series of blood work, including a connective tissue disease cascade which is pending at this time. The patient does note joint pain, sun sensitivity, and Raynaud's disease. She feels she does not sweat normally and will be undergoing a sweat test. Allergies Allergen Reactions ??? Sulfa (Sulfonamide Antibiotics) GI intolerance PAST MEDICAL HISTORY Negative for skin cancer FAMILY HISTORY Positive for nonmelanoma skin cancer, father PHYSICAL EXAM General: Awake, alert, in no acute distress, and with appropriate affect. Skin: I have examined the face per patient request. Leal skin type I. Involving the bilateralcheeks is severe redness with telangiectasias. Present, but less so over the nose and chin. IMPRESSION/REPORT/PLAN #1 Rosacea The patient experiences facial redness, flushing, and visible blood vessels. Diagnosis discussed with the patient. The physical examination is most consistent with rosacea. The patient will undergo evluation for an autoimmune disorder. We will wait for the results of those tests before any invasive naima atment procedures such as laser. 1. May benefit from oxymetazoline, the active ingredient in Flonase nasal spray. She can spread the Flonase into the hands and applied to the cheeks 30 minutes prior to events to decrease the redness. 2. Cetaphil makes a redness relief facial cream with SPF that she may experience benefit from. 3. Await autoimmune work up results. 4. Consider pulse dye laser treatment for redness relief. PATIENT EDUCATION Ready to learn. No apparent learning barriers were identified. Learning preferences include listening. Explained diagnosis and treatment plan; patient/guardian of patient expressed understanding of thecontent. REPORTER documented in this encounter Plan of Treatment Not on filedocumented as of this encounter Visit Diagnoses Diagnosis Rosacea - Primary documented in this encounter
--- OUTSIDE RECORDS SUMMARY | 2022-07-05 21:35 | XMS_ITS | Encounter Summary ---
:1980 Author Organization [facility] Address [address] [place] [address] Care Team Providers Name Role Phone Unavailable Primary Care Provider Unavailable Encounter Details Date Type Department Care Team Description 11/13/2021 Hospital Encounter Department of Leonora Lucero Cardi ac Vascular Radiology, [facility] Screening [facility], in [address] [place] [address] [place] [id number] [place], [place] [phone] (Work) [phone] Social History Tobacco Use Types Packs/Day Years [...] or relatives? How often do you attend baptism or mandaen 1 to 4 times per year 11/09/2021 services? Do you belong to any clubs or organizations Yes 11/09/2021 such as baptism groups, unions, fraternal or athletic groups, or [...] to sleep or slept in a senior care (including now)? Education Answer Date Recorded What is the highest level of school Bachelor's degree (e.g., BA, AB, 11/09/2021 you have completed or the highest BS) degree you have received? Sex Assigned at Date Recorded Female 11/09/2021 9:31 AM CARGO MATE documented as of this encounter Medications at [...] Name Priority Date/Time Associated Comments Diagnosis DX CHEST AP OR PA RAD - Routine 11/13/2021 1:42 Cardiac Vascular Re sults for this AND LATERAL 2 (most inpatients PM CARGO MATE Disease Screening proce dure are in VIEWS and all the results outpatients) section. documented in this encounter Results DX Chest AP or PA and Lateral 2 Views (11/13/2021 1:42 PM CARGO MATE) Anatomical Region Laterality Modality Chest, Thoracic RST LOS, Thoracic ARZ LOS, Thoracic N/A Digital Radiography FLA LOS Specimen (Source) Anatomical Collection Method Collection Time Re ceived Time Location / / Volume Laterality 11/13/2021 1:47 PM CARGO MATE Impressions 11/13/2021 1:47 PM CARGO MATE Negative chest. Narrative 11/13/2021 1:47 PM CARGO MATE EXAM: ??DX CHEST AP OR PA AND LATERAL 2 VIEWS Procedure Note Mika Purdy M.D. - 11/13/2021Fo rmatting of this note might be different from the original. EXAM: DX CHEST AP OR PA AND LATERAL 2 EWS IMPRESSION: Negative chest. Leonora Lucero M.D. [facility] documented in this encounter Visit Diagnoses Diagnosis Cardiac Vascular Disease Screening documented in this encounter Additional Health Concerns Infection Onset Date Last Indicated Resolved Time COVID19 Pending 11/13/2021 11/13/2021 11/13/2021 1:44 PM CARGO MATE documented as of this encounter
== END 2022-06-27 22:22 | disposition home or self-care (01) ==
PROVIDERS: Emergency Provider Family Medicine
DX: H69.83 Other specified disorders of Eustachian tube, bilateral (principal); H65.01 Acute serous otitis media, right ear
CPT/HCPCS: 99283; 99284